=== PATIENT | female | born 1940 | race Caucasian/White ===

== ENCOUNTER 2021-07-04 19:31 | Inpatient (IN) | payer MEDICARE ==
--- NOTE | 2021-07-04 20:33 | ED ---
General Adult HPI - General Chief complaint: Shortness of Breath Stated complaint: ARRON Time Seen by Provider: 07/04/21 19:59 Source: patient, EMS Mode of arrival: EMS Limitations: no limitations - History of Present Illness Initial comments: Dictation was produced using [employer] dictation software. please excuse any grammatical, word or spelling errors. Chief Complaint: 80-year-old female with no significant past medical history presents to the emergency department for flulike symptoms, recent coronavirus positive test History of Present Illness: And is 80-year-old female she denies any significant past medical history. She is unvaccinated. Patient's been feeling symptoms of coronavirus for the last 10 days. EMS was called patient is brought to the emergency department. Patient's been feeling weak with shortness of breath. Tested +5 days ago. According to EMS patient was 72% on room air on initial evaluation. Patient denies any shortness of breath. Patient denies any history of lung disease. The ROS documented in this emergency department record has been reviewed and confirmed by me. Those systems with pertinent positive or negative responses have been documented in the HPI. All other systems are other negative and/or noncontributory. PHYSICAL EXAM: General Impression: Alert and oriented x3, not in acute distress HEENT: Normocephalic atraumatic, extra-ocular movements intact, pupils equal and reactive to light bilaterally, mucous membranes moist. Cardiovascular: Heart regular rate and rhythm Chest: Able to complete full sentences, no retractions, no tachypnea Abdomen: abdomen soft, non-tender, non-distended, no organomegaly Musculoskeletal: Pulses present and equal in all extremities, no peripheral edema Motor: no focal deficits noted Neurological: CN II-XII grossly intact, no focal motor or sensory deficits noted Skin: Intact with no visualized rashes Psych: Normal affect and mood ED course: 80 y Old female tested positive for coronavirus 5 days ago presents to emergency department for shortness of breath and cough. EMS oxygenation on room air was 72%. Patient had a 7% on 3 L nasal cannula. He is a cannula was removed at the bedside with findings of 93-94%. Vital Signs upon arrival are within acceptable limits.Nasal cannula removed the patient's oxygen dropped to 85%. Patient placed on nasal cannula. Patient given Decadron. Return evaluation obtained. Leukocytosis of 10.8 with neutrophils 8.9. Coag panel is negative. Metabolic panel shows LDH of 1000.57. CRP is 23.3. Slightly elevated renal markers. Chest x-ray shows bilateral infiltrates. Patient will be admitted for hypoxic respiratory failure secondary COVID-19. 3 L is a cannula. EKG interpretation: Ventricular rate 85, normal sinus rhythm,. 174, QRS 90, QTc 461. No NH prolongation, no QTC prolongation, no ST or T-wave changes noted. . Overall, this EKG is unremarkable - Related Data Home Medications Medication Instructions Recorded Confirmed No Known Home Medications 07/04/21 07/04/21 Allergies Allergy/AdvReac Type Severity Reaction Status Date / Time No Known Allergies Allergy Verified 07/04/21 21:26 Review of Systems ROS Statement: Those systems with pertinent positive or pertinent negative responses have been documented in the HPI. ROS Other: All systems not noted in ROS Statement are negative. Past Medical History Past Medical History: No Reported History History of Any Multi-Drug Resistant Organisms: None Reported Past Surgical History: No Surgical Hx Reported Past Psychological History: No Psychological Hx Reported Smoking Status: Never smoker General Exam Limitations: no limitations Course Vital Signs 07/04/21 07/04/21 07/04/21 19:38 21:10 21:30 Pulse Rate 89 83 Respiratory 18 18 Rate Blood Pressure 160/83 152/68 O2 Sat by Pulse 97 96 95 Oximetry Medical Decision Making - Lab Data Result diagrams: 07/04/21 20:43 07/04/21 20:43 Lab Results 07/04/21 07/04/21 07/04/21 Range/Units 20:43 20:43 20:43 WBC 10.8 H (3.8-10.6) k/uL RBC 4.60 (3.80-5.40) m/uL Hgb 13.2 (11.4-16.0) gm/dL Hct 39.6 (34.0-46.0) % MCV 86.0 (80.0-100.0) fL MCH 28.7 (25.0-35.0) pg MCHC 33.3 (31.0-37.0) g/dL RDW 12.8 (11.5-15.5) % Plt Count 211 (150-450) k/uL MPV 7.5 Neutrophils % 83 % Lymphocytes % 10 % Monocytes % 4 % Eosinophils % 1 % Basophils % 1 % Neutrophils # 8.9 H (1.3-7.7) k/uL Lymphocytes # 1.0 (1.0-4.8) k/uL Monocytes # 0.4 (0-1.0) k/uL Eosinophils # 0.1 (0-0.7) k/uL Basophils # 0.1 (0-0.2) k/uL PT 11.7 (9.0-12.0) sec INR 1.1 (<1.2) APTT 21.0 L (22.0-30.0) sec Sodium 137 (137-145) mmol/L Potassium 3.9 (3.5-5.1) mmol/L Chloride 101 (98-107) mmol/L Carbon Dioxide 23 (22-30) mmol/L Anion Gap 13 mmol/L BUN 25 H (7-17) mg/dL Creatinine 1.07 H (0.52-1.04) mg/dL Est GFR (CKD-EPI)AfAm 57 (>60 ml/min/1.73 sqM) Est GFR (CKD-EPI)NonAf 49 (>60 ml/min/1.73 sqM) Glucose 105 H (74-99) mg/dL Plasma Lactic Acid Twin (0.7-2.0) mmol/L Calcium 8.9 (8.4-10.2) mg/dL Magnesium 2.0 (1.6-2.3) mg/dL Total Bilirubin 1.0 (0.2-1.3) mg/dL AST 56 H (14-36) U/L ALT 34 (4-34) U/L Alkaline Phosphatase 99 (38-126) U/L Lactate Dehydrogenase 1457 H (313-618) U/L C-Reactive Protein 23.3 H (<1.0) mg/dL Total Protein 7.0 (6.3-8.2) g/dL Albumin 3.5 (3.5-5.0) g/dL 07/04/21 Range/Units 20:43 WBC (3.8-10.6) k/uL RBC (3.80-5.40) m/uL Hgb (11.4-16.0) gm/dL Hct (34.0-46.0) % MCV (80.0-100.0) fL MCH (25.0-35.0) pg MCHC (31.0-37.0) g/dL RDW (11.5-15.5) % Plt Count (150-450) k/uL MPV Neutrophils % % Lymphocytes % % Monocytes % % Eosinophils % % Basophils % % Neutrophils # (1.3-7.7) k/uL Lymphocytes # (1.0-4.8) k/uL Monocytes # (0-1.0) k/uL Eosinophils # (0-0.7) k/uL Basophils # (0-0.2) k/uL PT (9.0-12.0) sec INR (<1.2) APTT (22.0-30.0) sec Sodium (137-145) mmol/L Potassium (3.5-5.1) mmol/L Chloride (98-107) mmol/L Carbon Dioxide (22-30) mmol/L Anion Gap mmol/L BUN (7-17) mg/dL Creatinine (0.52-1.04) mg/dL Est GFR (CKD-EPI)AfAm (>60 ml/min/1.73 sqM) Est GFR (CKD-EPI)NonAf (>60 ml/min/1.73 sqM) Glucose (74-99) mg/dL Plasma Lactic Acid Twin 1.2 (0.7-2.0) mmol/L Calcium (8.4-10.2) mg/dL Magnesium (1.6-2.3) mg/dL Total Bilirubin (0.2-1.3) mg/dL AST (14-36) U/L ALT (4-34) U/L Alkaline Phosphatase (38-126) U/L Lactate Dehydrogenase (313-618) U/L C-Reactive Protein (<1.0) mg/dL Total Protein (6.3-8.2) g/dL Albumin (3.5-5.0) g/dL Disposition Clinical Impression: COVID-19, Hypoxia Disposition: ADMITTED IP TO THIS HOSP Condition: Fair
--- NOTE | 2021-07-04 20:39 | XR ---
EXAMINATION TYPE: XR chest 1V portable DATE OF EXAM: 07/04/2021 COMPARISON: NONE HISTORY: Short of breath TECHNIQUE: Single view FINDINGS: There is some peripheral bilateral pulmonary interstitial pneumonia. There are no hilar mas ses. There is no gross heart failure. Costophrenic angles are clear. IMPRESSION: Bilateral pneumonia. Normal heart.
[2021-07-04 20:54] LABS: Basophils # (A) 0.1 k/uL (0-0.2); Basophils % (A) 1 %; Eosinophils # (A) 0.1 k/uL (0-0.7); Eosinophils % (A) 1 %; HCT 39.6 % (34.0-46.0); HGB 13.2 gm/dL (11.4-16.0); Lymphocytes % (A) 10 %; MCH 28.7 pg (25.0-35.0); MCHC 33.3 g/dL (31.0-37.0); Mean Platelet Volume 7.5; Monocytes # (A) 0.4 k/uL (0-1.0); Monocytes % (A) 4 %; Neutrophils # (A) 8.9 k/uL (1.3-7.7); Neutrophils % (A) 83 %; Platelet Count 211 k/uL (150-450); RDW 12.8 % (11.5-15.5); WBC 10.8 k/uL (3.8-10.6)
[2021-07-04] MEDS ORDERED: NALOXONE 0.4 MG/ML 1 ML VIAL IV PRN (20:57)
[2021-07-04] MEDS ORDERED: DEXAMETHASONE SOD PHOSPHATE 10 MG/ML 1 ML VIAL IV STA (20:57)
[2021-07-04] MEDS ORDERED: ACETAMINOPHEN TAB 325 MG TAB PO PRN (20:57)
[2021-07-04 21:11] LABS: Albumin 3.5 g/dL (3.5-5.0); Calcium 8.9 mg/dL (8.4-10.2)
[2021-07-04 21:24] LABS: INR 1.1 (<1.2); Prothrombin Time 11.7 sec (9.0-12.0)
[2021-07-04 21:25] LABS: Potassium 3.9 mmol/L (3.5-5.1)
[2021-07-04 21:26] LABS: C Reactive Protein 23.3 mg/dL (<1.0)
[2021-07-04] MEDS: SODIUM CHLORIDE 0.9% 1,000 ML IV SCH (21:30)
[2021-07-04] MEDS ORDERED: hydrALAZINE HCL 25 MG TAB PO STA (23:35)
[2021-07-05] MEDS ORDERED: ENOXAPARIN 40 MG/0.4 ML SYRINGE SQ SCH (11:30)
[2021-07-05] MEDS: CHOLECALCIFEROL 25 MCG (1000 IU) TABLET PO SCH (12:53)
[2021-07-05] MEDS: DEXAMETHASONE SOD PHOSPHATE 10 MG/ML 1 ML VIAL IV SCH (12:53)
[2021-07-05] MEDS: ASCORBIC ACID 500 MG TAB PO SCH (12:53)
--- NOTE | 2021-07-05 14:05 | P.CNPUL ---
History of Present Illness Consult date: 07/05/21 Requesting physician: Zeke Diaz Reason for consult: COPD, abnormal CXR/CT Chief complaint: Shortness of breath, cough, congestion History of present illness: This is a very pleasant 80-year-old female patient with no specific past medical history. On no home medications. On June 24 she started developing flu like symptoms with poor appetite, chills, cough, congestion. She tested po sitive for COVID-19 on 06/29/2021 in the [facility]. Her symptoms progressed and she was brought here to the hospital yesterday. She did have O2 saturations in the mid 80s. Chest x-ray showed evidence of COVID-19 pneumonia with bilateral peripheral pulmonary interstitial infiltrates. White count 10.8. Hemoglobin 13.2. Sodium 137. Potassium 3.2. Creatinine 1.07. LDH 1457. C- reactive protein 23.3. Pro-calcitonin 0.13. She's been initiated on Decadron 6 mg daily, Lovenox 40 mg subcu daily, vitamin supplements. She is outside the window for Remdesivir. Does not meet criteria for Baricitinib. She is seen today in consultation on the regular medical floor. She is currently sitting up in bed. Awake and alert in no acute distress. She is maintaining O2 saturations in the 90s on liters per minute per nasal cannula. O2 saturation 92%. She's been afebrile. Hemodynamically stable. Review of Systems REVIEW OF SYSTEMS: CONSTITUTIONAL: Flulike symptoms. Denies any recent significant weight loss or weight gain. EYES: Denies change in vision. EARS, NOSE, MOUTH, THROAT: Denies headaches, denies sore throat. CARDIOVASCULAR: Denies chest pain, palpitations or syncopal episodes. RESPIRATORY: Positive for shortness of breath, cough, congestion no hemoptysis. GASTROINTESTINAL: Decreased appetite, denies abdominal pain GENITOURINARY: Denies hematuria, denies infections. MUSKULOSKELETAL: Denies pain, denies swelling. INTEGUMENTARY: Denies rash, denies eczema. NEUROLOGICAL: Denies recent memory loss, no recent seizure activity. PSYCHIATRIC: Denies anxiety, denies depression. HEMATOLOGIC/LYMPHATIC: Denies anemia, denies enlarged lymph nodes. Past Medical History Past Medical History: No Reported History History of Any Multi-Drug Resistant Organisms: None Reported Past Surgical History: No Surgical Hx Reported Additional Past Surgical History / Comment(s): both knees replaced, hysterectomy, cataracts surgery Past Psychological History: No Psychological Hx Reported Smoking Status: Never smoker Medications and Allergies Home Medications Medication Instructions Recorded Confirmed Type No Known Home Medications 07/04/21 07/04/21 History Allergies Allergy/AdvReac Type Severity Reaction Status Date / Time No Known Allergies Allergy Verified 07/04/21 21:26 Physical Exam Vitals: Vital Signs Temp Pulse Pulse Resp BP BP Pulse Ox 07/05/21 11:51 92 L 07/05/21 10:25 89 L 07/05/21 10:10 98.0 F 92 19 156/73 84 L 07/05/21 09:00 90 L 07/05/21 05:41 98.1 F 78 18 133/69 93 L 07/05/21 02:00 98.3 F 88 18 138/73 97 07/04/21 22:43 98.5 F 80 20 185/78 97 07/04/21 22:40 98.9 F 07/04/21 21:30 83 18 152/68 95 07/04/21 21:10 96 07/04/21 19:38 89 18 160/83 97 Intake and Output 07/04/21 07/05/21 07/05/21 22:59 06:59 14:59 Other: # Voids 1 Weight 72.575 kg GENERAL EXAM: Alert, pleasant 80-year-old female patient, on 6 L nasal cannula, comfortable in no apparent distress. HEAD: Normocephalic. EYES: Normal reaction of pupils, equal size. NOSE: Clear with pink turbinates. THROAT: No erythema or exudates. NECK: No masses, no JVD. CHEST: No chest wall deformity. LUNGS: Equal air entry with crackles in the bilateral posterior bases. CVS: S1 and S2 normal with no audible murmur, regular rhythm. ABDOMEN: No hepatosplenomegaly, normal bowel sounds, no guarding or rigidity. SPINE: No scoliosis or deformity SKIN: No rashes CENTRAL NERVOUS SYSTEM: No focal deficits, tone is normal in all 4 extremities. EXTREMITIES: There is no peripheral edema. No clubbing, no cyanosis. Peripheral pulses are intact. Results - Laboratory Findings CBC and BMP: 07/04/21 20:43 07/04/21 20:43 PT/INR, D-dimer PT 11.7 sec (9.0-12.0) 07/04/21 20:43 INR 1.1 (<1.2) 07/04/21 20:43 Abnormal lab findings: Abnormal Labs 07/04/21 07/04/21 07/04/21 20:43 20:43 20:43 WBC 10.8 H Neutrophils # 8.9 H APTT 21.0 L BUN 25 H Creatinine 1.07 H Glucose 105 H AST 56 H Lactate Dehydrogenase 1457 H C-Reactive Protein 23.3 H Procalcitonin 07/04/21 20:43 WBC Neutrophils # APTT BUN Creatinine Glucose AST Lactate Dehydrogenase C-Reactive Protein Procalcitonin 0.13 H - Diagnostic Findings Chest x-ray: image reviewed Assessment and Plan Assessment: 1 Acute hypoxemic respiratory failure secondary to COVID-19 pneumonia. Unvaccinated. Outside the window for Remdesivir. Currently not qualifying for Baricitinib. 2 Elevated inflammatory markers secondary to above 3 Acute renal failure secondary to dehydration Plan: The patient was seen and evaluated by Dr. Ambrocio Chest x-ray and labs reviewed Obtain a d-dimer Continue Lovenox, Decadron, vitamin supplements Titrate the FiO2 as tolerated Follow-up chest x-ray, inflammatory markers in the a.m. We'll continue to follow and make further recommendations based on her clinical status I, the cosigning physician, performed a history & physical examination of the patient. Lungs sounds with crackles in the bilateral posterior bases. Maintaining good O2 saturations in the 90s on 6 L high flow nasal cannula. I discussed the assessment and plan of care with my nurse practitioner, Magalys Garcias. I attest to the above consultation as dictated by her. Time with Patient: Greater than 30
[2021-07-05 21:33] LABS: Ferritin 1340.1 ng/mL (10.0-291.0)
--- NOTE | 2021-07-05 21:57 | P.HPIM ---
History of Present Illness H&P Date: 07/05/21 Chief Complaint: Shortness of breath History of presenting complaint: This is a pleasant 80-year-old patient with no family doctor. I was informed this afternoon to resume the care of this patient. Patient normally in good health does not take any medications at home. Patient was recently at a family event and on June 22 started having some systemic symptoms. She had a slight cough. Slight chills. Decreased appetite. Some weakness. Symptoms started to progress. Patient started becoming short of breath for last 3 days. June 29 she tested positive for COVID-19. Per EMS his pulse ox dropped down to 72%. She is currently on 6 L. Patient denies any fevers. 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 She was brought in on 3 L of oxygen with a pulse ox pain 90-95% by EMS. Patient did not take the vaccine for COVID-19 Review of systems: GEN.: Tired decreased appetite EYES: None HEENT: None NECK: None RESPIRATORY: As above CARDIOVASCULAR: None GASTROINTESTINAL: Occasional diarrhea GENITOURINARY: None MUSCULOSKELETAL: Some muscle weakness LYMPHATICS: None HEMATOLOGICAL: None PSYCHIATRY: None NEUROLOGICAL: None Past medical history to include: Osteoarthritis. Social history: . No history of smoking or alcohol. Family history: Reviewed, noncontributory to presentation Physical examination: VITAL SIGNS: 98.8, 83, 20, 180/74, 94% on 6 L GENERAL: BMI 27.5, reclining in bed, not in distress. EYES: Pupils equal. Conjunctiva normal. HEENT: External appearance of nose and ears normal, oral cavity grossly normal. NECK: JVD not raised; masses not palpable. HEART: First and second heart sounds are normal; no edema. LUNGS: Respiratory rate increased, basal fine crackles. ABDOMEN: Soft, nontender, liver spleen not palpable, no masses palpable. PSYCH: Alert and oriented x3; mood and affect normal. MUSCULAR skeletal: Evidence of OA especially in the hands NEUROLOGICAL: Cranial nerves grossly intact; no facial asymmetry, power and sensation grossly intact. LYMPHATICS: No lymph nodes palpable in the axilla and neck INVESTIGATIONS, reviewed in the clinical context: White count 10.8 hemoglobin 13.2 platelets 211 d-dimer 34.1 potassium 3.9 BUN 25 creatinine 1.07 CRP 23.3 pro-calcitonin 0.13 EKG tracing personally reviewed by ms-salazar sinus rhythm, 85/m Chest x-ray film personally reviewed by me-bilateral infiltrates Assessment plan: -Acute COVID-19 bilateral pneumonitis, with symptoms starting on June 22. Patient tested positive on June 29. IV dexamethasone. Vitamin C, vitamin D, given d-dimer of 34, and progressive hypoxia will use therapeutic dose Lovenox. Consultation to pulmonary and ID -Acute hypoxic respiratory failure from COVID-19 Patient on 3 L of oxygen on presentation now to 6 L. -Acute kidney injury, prerenal from decreased oral intake IV fluids at 75 mL an hour Care was discussed with the patient. Advised to sit up in a chair when possible. Incentive spirometry. Change positions in bed every half hour. Repeat BMP. Follow d-dimer CRP. Also spoke to patient's daughter Noemi over the phone. Clinical condition updated. Questions answered. Requested daughter to bring in food from the home as patient does not like the hospital food and will not eat the same Given the complexity and severity of patient's condition expect the patient to be in the hospital at least for 2 overnights Past Medical History Past Medical History: No Reported History History of Any Multi-Drug Resistant Organisms: None Reported Past Surgical History: No Surgical Hx Reported Additional Past Surgical History / Comment(s): both knees replaced, hysterectomy, cataracts surgery Past Psychological History: No Psychological Hx Reported Smoking Status: Never smoker Medications and Allergies Home Medications Medication Instructions Recorded Confirmed Type No Known Home Medications 07/04/21 07/04/21 History Allergies Allergy/AdvReac Type Severity Reaction Status Date / Time No Known Allergies Allergy Verified 07/04/21 21:26 Physical Exam Vitals: Vital Signs Temp Pulse Pulse Resp BP BP Pulse Ox 07/05/21 18:00 98.8 F 83 20 180/74 94 L 07/05/21 14:00 98.4 F 86 19 174/91 93 L 07/05/21 11:51 92 L 07/05/21 10:25 89 L 07/05/21 10:10 98.0 F 92 19 156/73 84 L 07/05/21 09:00 90 L 07/05/21 05:41 98.1 F 78 18 133/69 93 L 07/05/21 02:00 98.3 F 88 18 138/73 97 07/04/21 22:43 98.5 F 80 20 185/78 97 07/04/21 22:40 98.9 F 07/04/21 21:30 83 18 152/68 95 07/04/21 21:10 96 Intake and Output 07/05/21 07/05/21 07/05/21 06:59 14:59 22:59 Other: # Voids 1 3 Results CBC & Chem 7: 07/04/21 20:43 07/04/21 20:43 Labs: Abnormal Lab Results - Last 24 Hours (Table) 07/04/21 07/04/21 07/04/21 Range/Units 20:43 20:43 20:43 WBC 10.8 H (3.8-10.6) k/uL Neutrophils # 8.9 H (1.3-7.7) k/uL APTT 21.0 L (22.0-30.0) sec D-Dimer (<0.60) mg/L FEU BUN 25 H (7-17) mg/dL Creatinine 1.07 H (0.52-1.04) mg/dL Glucose 105 H (74-99) mg/dL AST 56 H (14-36) U/L Lactate Dehydrogenase 1457 H (313-618) U/L C-Reactive Protein 23.3 H (<1.0) mg/dL Procalcitonin (0.02-0.09) ng/mL 07/04/21 07/05/21 Range/Units 20:43 14:54 WBC (3.8-10.6) k/uL Neutrophils # (1.3-7.7) k/uL APTT (22.0-30.0) sec D-Dimer >34.10 H (<0.60) mg/L FEU BUN (7-17) mg/dL Creatinine (0.52-1.04) mg/dL Glucose (74-99) mg/dL AST (14-36) U/L Lactate Dehydrogenase (313-618) U/L C-Reactive Protein (<1.0) mg/dL Procalcitonin 0.13 H (0.02-0.09) ng/mL Thrombosis Risk Factor Assmnt - Choose All That Apply Any of the Below Risk Factors Present?: No Each Risk Factor Represents 3 Points: Age 75 years or older Other congenital or acquired thrombophilia - If yes, enter type in comment: No Thrombosis Risk Factor Assessment Total Risk Factor Score: 3 Thrombosis Risk Factor Assessment Level: Moderate Risk
[2021-07-05] MEDS: LACTATED RINGERS 1,000 ML IV SCH (22:01)
[2021-07-05] MEDS: ZINC SULFATE 220 MG CAP PO SCH (22:01)
[2021-07-05] MEDS: ENOXAPARIN 60 MG/0.6 ML SYRINGE SQ SCH (22:02)
[2021-07-05] MEDS: SODIUM CHLORIDE 0.9% 1,000 ML IV SCH (22:14)
[2021-07-05] MEDS: hydrALAZINE HCL 25 MG TAB PO PRN (22:15)
[2021-07-06] MEDS: ASCORBIC ACID 500 MG TAB PO SCH (07:55)
[2021-07-06] MEDS: ENOXAPARIN 60 MG/0.6 ML SYRINGE SQ SCH (07:55)
[2021-07-06] MEDS: ZINC SULFATE 220 MG CAP PO SCH (07:56)
[2021-07-06] MEDS: DEXAMETHASONE SOD PHOSPHATE 10 MG/ML 1 ML VIAL IV SCH (07:56)
[2021-07-06] MEDS: CHOLECALCIFEROL 25 MCG (1000 IU) TABLET PO SCH (07:56)
[2021-07-06] MEDS: FAMOTIDINE 20 MG TAB PO SCH (07:56)
[2021-07-06 08:33] LABS: African American GFR (CKD) 71 (>60 ml/min/1.73 sqM); Anion Gap 12 mmol/L; Blood Urea Nitrogen 29 mg/dL (7-17); Calcium 9.2 mg/dL (8.4-10.2); Carbon Dioxide 25 mmol/L (22-30); Chloride 103 mmol/L (98-107); Glucose 113 mg/dL (74-99); Non-African American GFR(CKD) 61 (>60 ml/min/1.73 sqM); Sodium 140 mmol/L (137-145)
[2021-07-06 08:57] LABS: C Reactive Protein 14.1 mg/dL (<1.0)
[2021-07-06] MEDS: LACTATED RINGERS 1,000 ML IV SCH (10:08)
--- NOTE | 2021-07-06 11:40 | US ---
EXAMINATION TYPE: US venous doppler duplex LE DATE OF EXAM: 07/06/2021 11:13 AM COMPARISON: NONE CLINICAL HISTORY: rule out DVT, elevated d-dimer. Positive Covid, no leg symptoms. SIDE PERFORMED: Bilateral TECHNIQUE: The lower extremity deep venous system is examined utilizing real time linear array sonog marylu with graded compression, doppler sonography and color-flow sonography. VESSELS IMAGED: Common Femoral Vein Deep Femoral Vein Greater Saphenous Vein * Femoral Vein Popliteal Vein Small Saphenous Vein * Proximal Calf Veins (* superficial vessels) There is normal flow, compressibility, vascular waveforms. Right Leg: Negative for DVT Left Leg: Negative for DVT IMPRESSION: No evident deep venous thrombosis within the lower extremities from the level of the knee s centrally
--- NOTE | 2021-07-06 12:13 | P.PN ---
Subjective Progress Note Date: 07/06/21 Principal diagnosis: COVID-19 pneumonia This is a very pleasant 80-year-old female patient with no specific past medical history. On no home medications. On June 24 she started developing flu like symptoms with poor appetite, chills, cough, congestion. She tested positive for COVID-19 on 06/29/2021 in the [place] area. Her symptoms progressed and she was brought here to the hospital yesterday. She did have O2 saturations in the mid 80s. Chest x-ray showed evidence of COVID-19 pneumonia with bilateral peripheral pulmonary interstitial infiltrates. White count 10.8. Hemoglobin 13.2. Sodium 137. Potassium 3.2. Creatinine 1.07. LDH 1457. C- reactive protein 23.3. Pro-calcitonin 0.13. She's been initiated on Decadron 6 mg daily, Lovenox 40 mg subcu daily, vitamin supplements. She is outside the window for Remdesivir. Does not meet criteria for Baricitinib. She is seen today in consultation on the regular medical floor. She is currently sitting up in bed. Awake and alert in no acute distress. She is maintaining O2 saturations in the 90s on liters per minute per nasal cannula. O2 saturation 92%. She's been afebrile. Hemodynamically stable. The patient is seen today 07/06/2021 in follow-up on the regular medical floor she is currently sitting up in bed. Awake and alert in no acute distress. She is still requiring 6 L high flow nasal cannula to maintain O2 saturations in the 90s. She's been afebrile. Hypertensive. D-dimer greater than 34. Sodium 140. Potassium 4.0. Creatinine 0.89. C-reactive protein 14.1. She is continued on Lovenox, Decadron, vitamin supplements. Objective - Vital Signs Vital signs: Vital Signs Temp 97.6 F 07/06/21 10:00 Pulse 76 07/06/21 10:00 Resp 20 07/06/21 10:00 BP 171/71 07/06/21 10:00 Pulse Ox 96 07/06/21 10:02 Intake & Output 07/05/21 07/06/21 07/06/21 18:59 06:59 18:59 Other: # Voids 3 3 3 - Exam GENERAL EXAM: Alert, 80-year-old female patient, on 6 L nasal cannula, comfortable in no apparent distress. HEAD: Normocephalic. EYES: Normal reaction of pupils, equal size. NOSE: Clear with pink turbinates. THROAT: No erythema or exudates. NECK: No masses, no JVD. CHEST: No chest wall deformity. LUNGS: Equal air entry with crackles in the bilateral posterior bases. CVS: S1 and S2 normal with no audible murmur, regular rhythm. ABDOMEN: No hepatosplenomegaly, normal bowel sounds, no guarding or rigidity. SPINE: No scoliosis or deformity SKIN: No rashes CENTRAL NERVOUS SYSTEM: No focal deficits, tone is normal in all 4 extremities. EXTREMITIES: There is no peripheral edema. No clubbing, no cyanosis. Peripheral pulses are intact. - Labs CBC & Chem 7: 07/04/21 20:43 07/06/21 06:51 Labs: Abnormal Lab Results - Last 24 Hours (Table) 07/04/21 07/05/21 07/06/21 Range/Units 20:43 14:54 06:51 D-Dimer >34.10 H >34.10 H (<0.60) mg/L FEU BUN (7-17) mg/dL Glucose (74-99) mg/dL Ferritin 1340.1 H (10.0-291.0) ng/mL C-Reactive Protein (<1.0) mg/dL 07/06/21 Range/Units 06:51 D-Dimer (<0.60) mg/L FEU BUN 29 H (7-17) mg/dL Glucose 113 H (74-99) mg/dL Ferritin (10.0-291.0) ng/mL C-Reactive Protein 14.1 H (<1.0) mg/dL Microbiology - Last 24 Hours (Table) 07/04/21 20:40 Blood Culture - Preliminary Blood No Growth after 24 hours Assessment and Plan Assessment: 1 Acute hypoxemic respiratory failure secondary to COVID-19 pneumonia. Unvaccinated. Outside the window for Remdesivir. Currently not qualifying for Baricitinib. 2 Elevated inflammatory markers secondary to above 3 Acute renal failure secondary to dehydration Plan: The patient was seen and evaluated by Dr. Ambrocio D-dimer elevated, Dopplers negative for DVT Obtain CT angiogram of the chest Increase Lovenox to therapeutic dose Continue Decadron, vitamin supplements Titrate the FiO2 as tolerated We'll continue to follow and make further recommendations based on her clinical status I, the cosigning physician, performed a history & physical examination of the patient. Lungs sounds with crackles in the bilateral posterior bases. Maintaining good O2 saturations in the 90s on 6 L high flow nasal cannula. I discussed the assessment and plan of care with my nurse practitioner, Magalys Garcias. I attest to the above note as dictated by her.
[2021-07-06] MEDS ORDERED: LISINOPRIL-HCTZ 10-12.5 MG 1 EACH TAB PO SCH (12:15)
--- NOTE | 2021-07-06 13:35 | CT ---
CT CHEST FOR PULMONARY EMBOLISM. EXAMINATION TYPE: CT angio chest DATE OF EXAM: 07/06/2021 INDICATION: Elevated D-dimer, +COVID 19 CT DLP: 303.8 mGycm, Automated exposure control for dose reduction was used. CONTRAST: Patient injected with 100 ml mL of Isovue 370. COMPARISON: None TECHNIQUE: CT of the chest is performed on a spiral scan at 2 mm thick sections. Study is performed with intravenous contrast timed for evaluation for pulmonary embolism. This will limit additional po rtions of the evaluation. 3-D MIP images reconstructed by the technologist are reviewed on the compu ter in the coronal and sagittal planes. FINDINGS: Left lower lobe pulmonary artery emboli are evident. No mediastinal or hilar adenopathy enlarged by CT criteria is evident. The ascending aorta diameter at the level of the main pulmonary artery is 3.0 cm. The main pulmonary artery diameter at the bifur cation is 2.9 cm. There are scattered peripheral groundglass opacities and infiltrates compatible with atypical pneumon ia. Limited CT section through the upper abdomen are unremarkable. IMPRESSIONS: 1. Left lower lobe pulmonary emboli. 2. Groundglass opacities to the peripheral lungs compatible with Covid A Red level critical message alert has been initiated for Ricardo Dow MD via the [facility] Results System on 07/06/2021 1:32 PM. This message alert has been sent to Ricardo Dow MD via the preferences provided by the clinician for the receipt of Radiology Critical Findings. Message ID [id number].
[2021-07-06] MEDS: hydrALAZINE HCL 25 MG TAB PO PRN (15:13)
[2021-07-06] MEDS ORDERED: cloNIDine HCL 0.1 MG TAB PO STA (16:32)
--- NOTE | 2021-07-06 17:45 | P.PN ---
Progress Note - Text Progress Note Date: 07/06/21 Chief Complaint: Shortness of breath History of presenting complaint: This is a pleasant 80-year-old patient with no family doctor. I was informed this afternoon to resume the care of this patient. Patient normally in good health does not take any medications at home. Patient was recently at a family event and on June 22 started having some systemic symptoms. She had a slight cough. Slight chills. Decreased appetite. Some weakness. Symptoms started to progress. Patient started becoming short of breath for last 3 days. June 29 she tested positive for COVID-19. Per EMS his pulse ox dropped down to 72%. She is currently on 6 L. Patient denies any fevers. 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 She was brought in on 3 L of oxygen with a pulse ox pain 90-95% by EMS. Patient did not take the vaccine for COVID-19 Admitted with acute COVID-19 pneumonitis, acute hypoxic respiratory failure. Started IV dexamethasone, therapeutic dose of Lovenox. July 06: Patient is breathing is actually better this morning. FiO2 decreased to 4 L. Computed tomography scan of the chest ordered showed left lower lobe PE. Patient is on therapeutic dose of Lovenox. Discussed with Dr. Barraza from [facility]. Given the improving oxygenation patient not a candidate for Baricitinib. Also spoke to patient of Dr. Bella over the phone and given an update. Questions answered. Review of systems: Was done for constitutional, cardiovascular, GI, pulmonary. relevant finding as above Active Medications Acetaminophen (Acetaminophen Tab 325 Mg Tab) 650 mg PO Q6HR PRN PRN Reason: Mild Pain or Fever > 100.5 Ascorbic Acid (Ascorbic Acid 500 Mg Tab) 1,000 mg PO DAILY [facility] Last Admin: 07/06/21 07:55 Dose: 1,000 mg Documented by: Cholecalciferol (Cholecalciferol 25 Mcg (1000 Iu) Tablet) 50 mcg PO DAILY [facility] Last Admin: 07/06/21 07:56 Dose: 50 mcg Documented by: Dexamethasone Sodium Phosphate (Dexamethasone Sod Phosphate 10 Mg/Ml 1 Ml Vial) 6 mg IV DAILY [facility] Last Admin: 07/06/21 07:56 Dose: 6 mg Documented by: Enoxaparin Sodium (Enoxaparin 80 Mg/0.8 Ml Syringe) 70 mg SQ Q12HR [facility] Famotidine (Famotidine 20 Mg Tab) 20 mg PO DAILY [facility] Last Admin: 07/06/21 07:56 Dose: 20 mg Documented by: Lisinopril/HCTZ (Lisinopril-Hctz 20-12.5 Mg 1 Each Tab) 1 each PO BID [facility] Hydralazine HCl (Hydralazine Hcl 25 Mg Tab) 25 mg PO TID PRN PRN Reason: Blood Pressure - High Last Admin: 07/06/21 15:13 Dose: 25 mg Documented by: Lactated Ringer's (Lactated Ringers) 1,000 mls @ 20 mls/hr IV .Q24H [facility] Last Admin: 07/06/21 10:08 Dose: Not Given Documented by: Naloxone HCl (Naloxone 0.4 Mg/Ml 1 Ml Vial) 0.2 mg IV Q2M PRN PRN Reason: Opioid Reversal Zinc Sulfate (Zinc Sulfate 220 Mg Cap) 220 mg PO DAILY [facility] Last Admin: 07/06/21 07:56 Dose: 220 mg Documented by: Past medical history to include: Osteoarthritis. Social history: . No history of smoking or alcohol. Family history: Reviewed, noncontributory to presentation Physical examination: VITAL SIGNS: GENERAL: BMI 27.5, reclining in bed, not in distress. EYES: Pupils equal. Conjunctiva normal. HEENT: External appearance of nose and ears normal, oral cavity grossly normal. NECK: JVD not raised; masses not palpable. HEART: First and second heart sounds are normal; no edema. LUNGS: Respiratory rate increased, basal fine crackles. ABDOMEN: Soft, nontender, liver spleen not palpable, no masses palpable. PSYCH: Alert and oriented x3; mood and affect normal. MUSCULAR skeletal: Evidence of OA especially in the hands NEUROLOGICAL: Cranial nerves grossly intact; no facial asymmetry, power and sensation grossly intact. LYMPHATICS: No lymph nodes palpable in the axilla and neck INVESTIGATIONS, reviewed in the clinical context: July 06: D-dimer greater than 34 potassium 4 creatinine 0.89 CRP 14.1 Chest CTA [July 06: Left lower lobe pulmonary emboli. Infiltrates Doppler ultrasound: Lower extremity/negative for DVT White count 10.8 hemoglobin 13.2 platelets 211 d-dimer 34.1 potassium 3.9 BUN 25 creatinine 1.07 CRP 23.3 pro-calcitonin 0.13 EKG tracing personally reviewed by ky-normal sinus rhythm, 85/m Chest x-ray film personally reviewed by me-bilateral infiltrates Assessment plan: -Acute COVID-19 bilateral pneumonitis, with symptoms starting on June 22. Patient tested positive on June 29. IV dexamethasone. Vitamin C, vitamin D, therapeutic dose Lovenox. Follow with pulmonary and ID -Acute left lower lobe pulmonary emboli, from COVID-19 Subcu Lovenox, therapeutic dose -Acute hypoxic respiratory failure from COVID-19: Slow to respond On 4 L nasal cannula. -Acute kidney injury, prerenal from decreased oral intake: Improving Decrease fluids Continue with IV dexamethasone, therapeutic dose Lovenox. Other supportive care. Discussed with the patient. Discussed with Dr. Barraza from ID, t the patient and updated patient daughter. Total time spent today about 40 minutes with over 20 minutes of discussion.
[2021-07-06] MEDS: LISINOPRIL-HCTZ 20-12.5 MG 1 EACH TAB PO SCH (21:30)
[2021-07-06] MEDS: ENOXAPARIN 80 MG/0.8 ML SYRINGE SQ SCH (21:31)
--- NOTE | 2021-07-06 23:36 | P.CONS ---
History of Present Illness - Reason for Consult Consult date: 07/06/21 covid 19 pneumonia Requesting physician: Ricardo Dow - Chief Complaint weakness and shortness of breath x days - History of Present Illness History of present illness : Patient is a 2-year-old female presenting to the ER 2 nights ago for evaluation of weakness and increasing shortness of breath and this patient symptom has been going on for more than 10 days tested positive for COVID-19 5 days before presentation to the hospital patient mention of the last few days she having increasing shortness of breath and have having significant weakness EMS was called and the patient was noticed to be hypoxic with O2 sats of 72% on room air patient denies having any chest pain she did have a cough moderate intensity was mostly dry in nature denies any nausea no vomiting no abdominal pain no diarrhea on presentation to the hospital patient was afebrile and no fever has been recorded subsequently patient was hypoxic with O2 sats of 85% room air patient is currently 92% on 4 l nasal cannula patient did have a normal white count with some left shift D-dimer has been significantly elevated creatinine was slightly elevated today is normal did have elevated LDH and a CRP blood cultures obtained which are currently pending patient did have a chest x-ray bilateral pneumonia normal heart patient was admitted to hospital infectious disease was consulted last night for further management patient did have lower extremity Doppler has been negative for DVT Review of system: CONSTITUTIONAL: Positive for weakness denies high-grade fever. EYES: No complaint. ENT: No complaint. RESPIRATORY: As per history of present illness. CARDIOVASCULAR: No complaint. GENITOURINARY: No complaint. GASTROINTESTINAL: No complaint. MUSCULOSKELETAL: No complaint. INTEGUMENTARY: No complaint. PSYCHOLOGIC: No complaint. ENDOCRINE: No complaint. NEUROLOGIC: No complaint. Past medical history : Reviewed, documented below Past surgical history : Reviewed, documented below Social history: Reviewed, documented below Medications: Reviewed, as documented below EXAMINATION: Vital sigans= Reviewed and documented below GENERAL DESCRIPTION: Elderly female lying in bed, no distress. No tachypnea or accessory muscle of respiration use. HEENT: Shows Pallor , no scleral icterus. Oral mucous membrane is dry. NECK: Trachea central, no thyromegaly. LUNGS: Unlabored breathing. Decrease intensity of breath sounds. No wheeze or crackle. HEART: S1, S2, regular rate and rhythm. ABDOMEN: Soft, no tenderness , guarding or rigidity EXTREMITIES: No edema of feet. SKIN: No rash, no masses palpable. NEUROLOGICAL: The patient is awake, alert, oriented x3, mood and affect normal. LABS AND RADIOLOGY: Reviewed results see below Assessment : Patient presented to hospital with increasing shortness of breath hypoxemia secondary to acute COVID-19 pneumonia in this patient symptom has been going on for more than 10 minutes and is currently out of the therapeutic window for remdesivir per [facility] policy 2-patient with significant elevated D-dimer concern for PE, positive CT angiogram has been ordered Plan: 1-patient at this time to continue with the dexamethasone Lovenox zinc and ascorbic acid 2-droplet isolation and respiratory support 3-no need for systemic antibiotic therapy We will follow on clinical condition and cultures to further adjust medication if needed Thank you for this consultation we will follow the patient along with you Past Medical History Past Medical History: No Reported History History of Any Multi-Drug Resistant Organisms: None Reported Past Surgical History: No Surgical Hx Reported Additional Past Surgical History / Comment(s): both knees replaced, hysterectomy, cataracts surgery Past Psychological History: No Psychological Hx Reported Smoking Status: Never smoker Medications and Allergies Home Medications Medication Instructions Recorded Confirmed Type No Known Home Medications 07/04/21 07/04/21 History Allergies Allergy/AdvReac Type Severity Reaction Status Date / Time No Known Allergies Allergy Verified 07/04/21 21:26 Physical Exam Vitals: Vital Signs Temp Pulse Resp BP Pulse Ox 07/06/21 21:06 97.7 F 69 20 183/80 92 L 07/06/21 18:00 97.4 F L 82 20 179/76 91 L 07/06/21 15:07 81 186/76 07/06/21 14:00 97.7 F 78 20 195/74 94 L 07/06/21 10:02 96 07/06/21 10:00 97.6 F 76 20 171/71 96 07/06/21 08:00 18 07/06/21 06:13 97.5 F L 71 18 161/77 92 L 07/06/21 02:27 98.2 F 87 16 189/73 94 L Intake and Output 07/06/21 07/06/21 07/07/21 14:59 22:59 06:59 Other: # Voids 3 3 Results CBC & Chem 7: 07/04/21 20:43 07/06/21 06:51 Labs: Abnormal Lab Results - Last 24 Hours (Table) 07/06/21 07/06/21 Range/Units 06:51 06:51 D-Dimer >34.10 H (<0.60) mg/L FEU BUN 29 H (7-17) mg/dL Glucose 113 H (74-99) mg/dL C-Reactive Protein 14.1 H (<1.0) mg/dL Microbiology - Last 24 Hours (Table) 07/04/21 20:40 Blood Culture - Preliminary Blood No Growth after 48 hours
[2021-07-07] MEDS: LACTATED RINGERS 1,000 ML IV SCH (01:53)
[2021-07-07] MEDS: METOPROLOL TARTRATE 25 MG TAB PO SCH ×3 (01:53→22:16)
[2021-07-07 06:54] LABS: Glucose,Whole Blood 80 mg/dL (75-99)
[2021-07-07] MEDS: ZINC SULFATE 220 MG CAP PO SCH (09:07)
[2021-07-07] MEDS: hydrALAZINE HCL 25 MG TAB PO PRN ×2 (09:08→18:28)
[2021-07-07] MEDS: DEXAMETHASONE SOD PHOSPHATE 10 MG/ML 1 ML VIAL IV SCH (09:08)
[2021-07-07] MEDS: FAMOTIDINE 20 MG TAB PO SCH (09:08)
[2021-07-07] MEDS: LISINOPRIL-HCTZ 20-12.5 MG 1 EACH TAB PO SCH ×2 (09:08→22:17)
[2021-07-07] MEDS: ASCORBIC ACID 500 MG TAB PO SCH (09:08)
[2021-07-07] MEDS: ENOXAPARIN 80 MG/0.8 ML SYRINGE SQ SCH (09:09)
[2021-07-07] MEDS: CHOLECALCIFEROL 25 MCG (1000 IU) TABLET PO SCH (09:09)
[2021-07-07] MEDS ORDERED: APIXABAN 5 MG TAB PO SCH (09:45)
[2021-07-07] MEDS ORDERED: METOPROLOL TARTRATE 25 MG TAB PO STA (11:57)
[2021-07-07] MEDS: CHLORTHALIDONE 25 MG TAB PO SCH (12:24)
--- NOTE | 2021-07-07 13:24 | P.PN ---
Subjective Progress Note Date: 07/07/21 Principal diagnosis: Acute COVID-19 pneumonia This is a very pleasant 80-year-old female patient with no specific past medical history. On no home medications. On June 24 she started developing flu like symptoms with poor appetite, chills, cough, congestion. She tested po sitive for COVID-19 on 06/29/2021 in the [place] area. Her symptoms progressed and she was brought here to the hospital yesterday. She did have O2 saturations in the mid 80s. Chest x-ray showed evidence of COVID-19 pneumonia with bilateral peripheral pulmonary interstitial infiltrates. White count 10.8. Hemoglobin 13.2. Sodium 137. Potassium 3.2. Creatinine 1.07. LDH 1457. C- reactive protein 23.3. Pro-calcitonin 0.13. She's been initiated on Decadron 6 mg daily, Lovenox 40 mg subcu daily, vitamin supplements. She is outside the window for Remdesivir. Does not meet criteria for Baricitinib. She is seen today in consultation on the regular medical floor. She is currently sitting up in bed. Awake and alert in no acute distress. She is maintaining O2 saturations in the 90s on liters per minute per nasal cannula. O2 saturation 92%. She's been afebrile. Hemodynamically stable. The patient is seen today 07/06/2021 in follow-up on the regular medical floor she is currently sitting up in bed. Awake and alert in no acute distress. She is still requiring 6 L high flow nasal cannula to maintain O2 saturations in the 90s. She's been afebrile. Hypertensive. D-dimer greater than 34. Sodium 140. Potassium 4.0. Creatinine 0.89. C-reactive protein 14.1. She is continued on Lovenox, Decadron, vitamin supplements. Reevaluated today on 07/07/2021, patient remains on the regular medical floor, she is on4 L nasal cannula, and her O2 saturation is 93%. Blood pressure however remains high, her blood pressures as high as 190/76. Patient is afebrile, she seems to be a bit anxious. CT of the chest showed left lower lobe pulmonary emboli and groundglass opacities to peripheral lungs compatible with COVID-19 infection. Patient has been fully anticoagulated, and I plan to transition the patient to oral anticoagulation therapy. Patient will be placed on Eliquis at 10 mg by mouth twice a day and eventually go to 5 mg twice a day. For her blood pressure, patient is receiving hydralazine, metoprolol, lisinopril, and Objective - Vital Signs Vital signs: Vital Signs Temp 97.7 F 07/07/21 10:00 Pulse 81 07/07/21 10:00 Resp 18 07/07/21 10:00 BP 190/76 07/07/21 10:00 Pulse Ox 90 L 07/07/21 10:00 Intake & Output 07/06/21 07/07/21 07/07/21 18:59 06:59 18:59 Other: Voiding Method Toilet Toilet # Voids 3 2 # Bowel Movements 1 - Exam Physical Exam: Revealed 80-year-old female in no distress. Head: Atraumatic normocephalic. HEENT:[Neck is supple.] [No neck masses.] [No thyromegaly.] [No JVD.] Chest: [Minimal fine crackles at the bases bilaterally. Cardiac Exam: [Normal S1 and S2, no S3 gallop, no murmur.] Abdomen: [Soft, nontender, no megaly, no rebound, no guarding, normal bowel sounds.] Extremities: [No clubbing, no edema, no cyanosis.] Neurological Exam: [No focal neurologic deficit.] No gross focal deficit. Alert and oriented 3. Psychiatric: Anxious, appropriate affect, normal mental status examination. Skin: No rashes. - Labs CBC & Chem 7: 07/04/21 20:43 07/06/21 06:51 Labs: Microbiology - Last 24 Hours (Table) 07/04/21 20:40 Blood Culture - Preliminary Blood No Growth after 48 hours Assessment and Plan Assessment: 1 Acute hypoxemic respiratory failure secondary to COVID-19 pneumonia. Unvaccinated. Outside the window for Remdesivir. Currently not qualifying for Baricitinib. 2 Elevated inflammatory markers secondary to above 3 Acute renal failure secondary to dehydration 4 acute pulmonary embolism provoked by COVID-19 pneumonia. This is also contributing to her acute hypoxemia. 5 benign essential hypertension, poorly controlled at present, being addressed by the admitting physician and she is on multiple medications presently. Recommendation: Continue Eliquis therapeutically for pulmonary embolism Discontinue Lovenox. Continue Decadron. Continue to titrate FiO2. Possibly consider discharge planning in the next 24-48 hours. Continue COVID-19 cocktail. We will continue to follow. Time with Patient: Less than 30
--- NOTE | 2021-07-07 15:34 | P.PN ---
Progress Note - Text Progress Note Date: 07/07/21 Chief Complaint: Shortness of breath History of presenting complaint: This is a pleasant 80-year-old patient with no family doctor. I was informed this afternoon to resume the care of this patient. Patient normally in good health does not take any medications at home. Patient was recently at a family event and on June 22 started having some systemic symptoms. She had a slight cough. Slight chills. Decreased appetite. Some weakness. Symptoms started to progress. Patient started becoming short of breath for last 3 days. June 29 she tested positive for COVID-19. Per EMS his pulse ox dropped down to 72%. She is currently on 6 L. Patient denies any fevers. 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 She was brought in on 3 L of oxygen with a pulse ox pain 90-95% by EMS. Patient did not take the vaccine for COVID-19 Admitted with acute COVID-19 pneumonitis, acute hypoxic respiratory failure. Started IV dexamethasone, therapeutic dose of Lovenox. Acute left lower lobe pulmonary embolism. Being changed over to eliquis July 06: Patient is breathing is actually better this morning. FiO2 decreased to 4 L. Computed tomography scan of the chest ordered showed left lower lobe PE. Patient is on therapeutic dose of Lovenox. Discussed with Dr. Barraza from [place]. Given the improving oxygenation patient not a candidate for Baricitinib. Also spoke to patient of Dr. Bella over the phone and given an update. Questions answered. July 07: On 4 L of nasal cannula. Oral intake fair. Had bowel movement. No fever. Slight cough. Breathing stable. Being changed over to eliquis. Discussed with patient. Has been up in a chair. Blood pressure been running high. I added beta ileana yesterday evening. Dose was further increased this morning as a morning blood pressure was 190/76. Chlorthalidone also added. Review of systems: Was done for constitutional, cardiovascular, GI, pulmonary. relevant finding as above Active Medications Acetaminophen (Acetaminophen Tab 325 Mg Tab) 650 mg PO Q6HR PRN PRN Reason: Mild Pain or Fever > 100.5 Apixaban (Apixaban 5 Mg Tab) 5 mg PO BID [facility]; Protocol Apixaban (Apixaban 5 Mg Tab) 10 mg PO BID [facility]; Protocol Stop: 07/14/21 09:01 Ascorbic Acid (Ascorbic Acid 500 Mg Tab) 1,000 mg PO DAILY [facility] Last Admin: 07/07/21 09:08 Dose: 1,000 mg Documented by: Chlorthalidone (Chlorthalidone 25 Mg Tab) 25 mg PO DAILY [facility] Last Admin: 07/07/21 12:24 Dose: 25 mg Documented by: Cholecalciferol (Cholecalciferol 25 Mcg (1000 Iu) Tablet) 50 mcg PO DAILY [facility] Last Admin: 07/07/21 09:09 Dose: 50 mcg Documented by: Dexamethasone Sodium Phosphate (Dexamethasone Sod Phosphate 10 Mg/Ml 1 Ml Vial) 6 mg IV DAILY [facility] Last Admin: 07/07/21 09:08 Dose: 6 mg Documented by: Famotidine (Famotidine 20 Mg Tab) 20 mg PO DAILY [facility] Last Admin: 07/07/21 09:08 Dose: 20 mg Documented by: Lisinopril/HCTZ (Lisinopril-Hctz 20-12.5 Mg 1 Each Tab) 1 each PO BID [facility] Last Admin: 07/07/21 09:08 Dose: 1 each Documented by: Hydralazine HCl (Hydralazine Hcl 25 Mg Tab) 25 mg PO TID PRN PRN Reason: Blood Pressure - High Last Admin: 07/07/21 09:08 Dose: 25 mg Documented by: Lactated Ringer's (Lactated Ringers) 1,000 mls @ 10 mls/hr IV .Q24H [facility] Last Admin: 07/07/21 01:53 Dose: 20 mls/hr Documented by: Metoprolol Tartrate (Metoprolol Tartrate 25 Mg Tab) 50 mg PO BID [facility] Naloxone HCl (Naloxone 0.4 Mg/Ml 1 Ml Vial) 0.2 mg IV Q2M PRN PRN Reason: Opioid Reversal Zinc Sulfate (Zinc Sulfate 220 Mg Cap) 220 mg PO DAILY [facility] Last Admin: 07/07/21 09:07 Dose: 220 mg Documented by: Past medical history to include: Osteoarthritis. Social history: . No history of smoking or alcohol. Family history: Reviewed, noncontributory to presentation Physical examination: VITAL SIGNS: 98.6, 66, 18, 156.97, 96% on 4 L GENERAL: Sitting on the side of the bed, eating LUNGS: Respiratory rate increased,. PSYCH: Alert and oriented x3; mood and affect normal. MUSCULAR skeletal: Evidence of OA especially in the hands NEUROLOGICAL: Moving all 4 limbs. Cranial nerves grossly intact. Rest of the exam as per pulmonary and nursing INVESTIGATIONS, reviewed in the clinical context: July 06: D-dimer greater than 34 potassium 4 creatinine 0.89 CRP 14.1 Chest CTA [July 06: Left lower lobe pulmonary emboli. Infiltrates Doppler ultrasound: Lower extremity/negative for DVT White count 10.8 hemoglobin 13.2 platelets 211 d-dimer 34.1 potassium 3.9 BUN 25 creatinine 1.07 CRP 23.3 pro-calcitonin 0.13 EKG tracing personally reviewed by me-normal sinus rhythm, 85/m Chest x-ray film personally reviewed by me-bilateral infiltrates Assessment plan: -Acute COVID-19 bilateral pneumonitis, with symptoms starting on June 22. Patient tested positive on June 29.: Slow to respond IV dexamethasone. Vitamin C, vitamin D, therapeutic dose Lovenox.-Changed over to eliquis Follow with pulmonary and ID -Acute left lower lobe pulmonary emboli, from COVID-19 Subcu Lovenox, being changed to to eliquis -Acute hypoxic respiratory failure from COVID-19: Slow to respond On 4 L nasal cannula. -Acute kidney injury, prerenal from decreased oral intake: Improving Decrease fluids -Essential hypertension with urgency Zestoretic 20/12.5 one tablet twice a day. Today Lopressor increased to 50 mg twice a day.. Chlorthalidone 25 mg daily added. IV dexamethasone, Lovenox being changed over to eliquis. For uncontrolled blood pressure dose of Lopressor increased to 50 mg twice a day. Chlorthalidone 25 mg daily added. IV fluids cutback. Discussed with patient
--- NOTE | 2021-07-07 16:36 | PN ---
PROGRESS NOTE DATE OF SERVICE: 07/07/2021 REASON FOR FOLLOWUP: COVID-19 pneumonia. INTERVAL HISTORY: Patient is afebrile. The patient is breathing comfortably today. Denies having any chest pain. Cough has decreased intensity. Mostly dry. No nausea, no vomiting. No abdominal pain, no diarrhea. PHYSICAL EXAMINATION: Blood pressure 156/97, pulse of 73, temperature 98.3 she is 96% on 4 L nasal cannula. General description is an elderly female up in the chair in no distress. Respiratory system unlabored breathing with decreased breath sounds. No wheeze. Heart S1, S2. Regular rate and rhythm. Abdomen soft. LABS: No new labs have been obtained today. DIAGNOSTIC IMPRESSION AND PLAN: Patient with acute COVID-19 pneumonia in this patient who had complicating factor of PE. The patient is currently being treated with dexamethasone and ascorbic acid and Eliquis to continue. Monitor clinical course closely. Continue supportive care negative. MMODL / IJN: [id number] /
[2021-07-07] MEDS: APIXABAN 5 MG TAB PO SCH (22:16)
[2021-07-08] MEDS: hydrALAZINE HCL 25 MG TAB PO PRN ×3 (02:40→18:20)
[2021-07-08] MEDS: LACTATED RINGERS 1,000 ML IV SCH (02:41)
[2021-07-08 05:18] LABS: African American GFR (CKD) 68 (>60 ml/min/1.73 sqM); Anion Gap 9 mmol/L; Blood Urea Nitrogen 29 mg/dL (7-17); Calcium 9.2 mg/dL (8.4-10.2); Carbon Dioxide 26 mmol/L (22-30); Chloride 103 mmol/L (98-107); Glucose 92 mg/dL (74-99); LDH 1212 U/L (313-618); Non-African American GFR(CKD) 59 (>60 ml/min/1.73 sqM); Potassium 3.9 mmol/L (3.5-5.1); Sodium 138 mmol/L (137-145)
--- NOTE | 2021-07-08 08:52 | XR ---
EXAMINATION TYPE: XR chest 1V portable DATE OF EXAM: 07/08/2021 Comparison: 07/04/2021 Clinical History: 80 year-old female follow up COVID Findings: Heart upper limits of normal in size. Hyperinflation. Bilateral peripheral lung opacities, right grea ter than left. No pleural effusion. Impression: COPD with continued right greater than left peripheral COVID infiltrates without significant change.
[2021-07-08] MEDS: DEXAMETHASONE SOD PHOSPHATE 10 MG/ML 1 ML VIAL IV SCH (09:24)
[2021-07-08] MEDS: APIXABAN 5 MG TAB PO SCH ×2 (09:25→22:58)
[2021-07-08] MEDS: CHOLECALCIFEROL 25 MCG (1000 IU) TABLET PO SCH (09:25)
[2021-07-08] MEDS: METOPROLOL TARTRATE 25 MG TAB PO SCH (09:25)
[2021-07-08] MEDS: ZINC SULFATE 220 MG CAP PO SCH (09:25)
[2021-07-08] MEDS: ASCORBIC ACID 500 MG TAB PO SCH (09:25)
[2021-07-08] MEDS: LISINOPRIL-HCTZ 20-12.5 MG 1 EACH TAB PO SCH ×2 (09:25→22:59)
[2021-07-08] MEDS: CHLORTHALIDONE 25 MG TAB PO SCH (09:25)
[2021-07-08] MEDS: FAMOTIDINE 20 MG TAB PO SCH (09:25)
--- NOTE | 2021-07-08 12:52 | P.PN ---
Subjective Progress Note Date: 07/08/21 Principal diagnosis: COVID-19 pneumonia This is a very pleasant 80-year-old female patient with no specific past medical history. On no home medications. On June 24 she started developing flu like symptoms with poor appetite, chills, cough, congestion. She tested positive for COVID-19 on 06/29/2021 in the [place] area. Her symptoms progressed and she was brought here to the hospital yesterday. She did have O2 saturations in the mid 80s. Chest x-ray showed evidence of COVID-19 pneumonia with bilateral peripheral pulmonary interstitial infiltrates. White count 10.8. Hemoglobin 13.2. Sodium 137. Potassium 3.2. Creatinine 1.07. LDH 1457. C- reactive protein 23.3. Pro-calcitonin 0.13. She's been initiated on Decadron 6 mg daily, Lovenox 40 mg subcu daily, vitamin supplements. She is outside the window for Remdesivir. Does not meet criteria for Baricitinib. She is seen today in consultation on the regular medical floor. She is currently sitting up in bed. Awake and alert in no acute distress. She is maintaining O2 saturations in the 90s on liters per minute per nasal cannula. O2 saturation 92%. She's been afebrile. Hemodynamically stable. The patient is seen today 07/06/2021 in follow-up on the regular medical floor she is currently sitting up in bed. Awake and alert in no acute distress. She is still requiring 6 L high flow nasal cannula to maintain O2 saturations in the 90s. She's been afebrile. Hypertensive. D-dimer greater than 34. Sodium 140. Potassium 4.0. Creatinine 0.89. C-reactive protein 14.1. She is continued on Lovenox, Decadron, vitamin supplements. Reevaluated today on 07/07/2021, patient remains on the regular medical floor, she is on4 L nasal cannula, and her O2 saturation is 93%. Blood pressure christina earl remains high, her blood pressures as high as 190/76. Patient is afebrile, she seems to be a bit anxious. CT of the chest showed left lower lobe pulmonary emboli and groundglass opacities to peripheral lungs compatible with COVID-19 infection. Patient has been fully anticoagulated, and I plan to transition the patient to oral anticoagulation therapy. Patient will be placed on Eliquis at 10 mg by mouth twice a day and eventually go to 5 mg twice a day. For her blood pressure, patient is receiving hydralazine, metoprolol, lisinopril, The patient is seen today 07/08/2021 in follow-up on the regular medical floor. She is sitting up in bed. Awake and alert in no acute distress. Eating a bit easier today compared to yesterday. Maintaining O2 saturations in the 90s on 4 L/m per nasal cannula. Afebrile. D-dimer 13.8. Sodium 138. Potassium 3.9. Creatinine 0.93. LDH 1212. C-reactive protein 9.0. She is anticoagulated with Eliquis. Remains on Decadron and vitamin supplements. Objective - Vital Signs Vital signs: Vital Signs Temp 98.2 F 07/08/21 11:00 Pulse 56 L 07/08/21 11:00 Resp 18 07/08/21 11:00 BP 168/77 07/08/21 11:00 Pulse Ox 94 L 07/08/21 11:00 Intake & Output 07/07/21 07/08/21 07/08/21 18:59 06:59 18:59 Other: Voiding Method Toilet Toilet Toilet # Voids 3 2 - Exam GENERAL EXAM: Alert, 80-year-old female patient, on 4 L nasal cannula, comfortable in no apparent distress. HEAD: Normocephalic. EYES: Normal reaction of pupils, equal size. NOSE: Clear with pink turbinates. THROAT: No erythema or exudates. NECK: No masses, no JVD. CHEST: No chest wall deformity. LUNGS: Equal air entry with crackles in the bilateral posterior bases. CVS: S1 and S2 normal with no audible murmur, regular rhythm. ABDOMEN: No hepatosplenomegaly, normal bowel sounds, no guarding or rigidity. SPINE: No scoliosis or deformity SKIN: No rashes CENTRAL NERVOUS SYSTEM: No focal deficits, tone is normal in all 4 extremities. EXTREMITIES: There is no peripheral edema. No clubbing, no cyanosis. Peripheral pulses are intact. - Labs CBC & Chem 7: 07/04/21 20:43 07/08/21 04:33 Labs: Abnormal Lab Results - Last 24 Hours (Table) 07/08/21 07/08/21 Range/Units 04:33 04:33 D-Dimer 13.82 H (<0.60) mg/L FEU BUN 29 H (7-17) mg/dL Lactate Dehydrogenase 1212 H (313-618) U/L C-Reactive Protein 9.0 H (<1.0) mg/dL Microbiology - Last 24 Hours (Table) 07/04/21 20:40 Blood Culture - Preliminary Blood No Growth after 72 hours Assessment and Plan Assessment: 1 Acute hypoxemic respiratory failure secondary to COVID-19 pneumonia. Unvaccinated. Outside the window for Remdesivir. Currently not qualifying for Baricitinib. 2 Elevated inflammatory markers secondary to above 3 Acute renal failure secondary to dehydration Plan: The patient was seen and evaluated by Dr. Ambrocio Chest x-ray and labs reviewed Anticoagulated with Eliquis Continue Decadron, vitamin supplements Titrate the FiO2 as tolerated Possible discharge in the a.m. We'll continue to follow and make further recommendations based on her clinical status I, the cosigning physician, performed a history & physical examination of the patient. Lungs sounds with crackles in the bilateral posterior bases. Maintaining good O2 saturations in the 90s on 4L nasal cannula. I discussed the assessment and plan of care with my nurse practitioner, Magalys Garcias. I attest to the above note as dictated by her.
[2021-07-08] MEDS ORDERED: METOPROLOL TARTRATE 25 MG TAB PO STA (12:57)
--- NOTE | 2021-07-08 15:32 | P.PN ---
Progress Note - Text Progress Note Date: 07/08/21 Chief Complaint: Shortness of breath History of presenting complaint: This is a pleasant 80-year-old patient with no family doctor. I was informed this afternoon to resume the care of this patient. Patient normally in good health does not take any medications at home. Patient was recently at a family event and on June 22 started having some systemic symptoms. She had a slight cough. Slight chills. Decreased appetite. Some weakness. Symptoms started to progress. Patient started becoming short of breath for last 3 days. June 29 she tested positive for COVID-19. Per EMS his pulse ox dropped down to 72%. She is currently on 6 L. Patient denies any fevers. 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 She was brought in on 3 L of oxygen with a pulse ox pain 90-95% by EMS. Patient did not take the vaccine for COVID-19 Admitted with acute COVID-19 pneumonitis, acute hypoxic respiratory failure. Started IV dexamethasone, therapeutic dose of Lovenox. Acute left lower lobe pulmonary embolism. Being changed over to eliquis July 06: Patient is breathing is actually better this morning. FiO2 decreased to 4 L. Computed tomography scan of the chest ordered showed left lower lobe PE. Patient is on therapeutic dose of Lovenox. Discussed with Dr. Barraza from ID. Given the improving oxygenation patient not a candidate for Baricitinib. Also spoke to patient of Dr. Bella over the phone and given an update. Questions answered. July 07: On 4 L of nasal cannula. Oral intake fair. Had bowel movement. No fever. Slight cough. Breathing stable. Being changed over to eliquis. Discussed with patient. Has been up in a chair. Blood pressure been running high. I added beta ileana yesterday evening. Dose was further increased this morning as a morning blood pressure was 190/76. Chlorthalidone also added. July 08: On 4 L of nasal cannula. Oral intake fair. Breathing slightly better. Blood pressure still running high. Will DC Lopressor, start labetalol 400 mg twice a day. Review of systems: Was done for constitutional, cardiovascular, GI, pulmonary. relevant finding as above Active Medications Acetaminophen (Acetaminophen Tab 325 Mg Tab) 650 mg PO Q6HR PRN PRN Reason: Mild Pain or Fever > 100.5 Apixaban (Apixaban 5 Mg Tab) 5 mg PO BID JOSE ALBERTO; Protocol Apixaban (Apixaban 5 Mg Tab) 10 mg PO BID [facility]; Protocol Stop: 07/14/21 09:01 Last Admin: 07/08/21 09:25 Dose: 10 mg Documented by: Ascorbic Acid (Ascorbic Acid 500 Mg Tab) 1,000 mg PO DAILY [facility] Last Admin: 07/08/21 09:25 Dose: 1,000 mg Documented by: Chlorthalidone (Chlorthalidone 25 Mg Tab) 25 mg PO DAILY [facility] Last Admin: 07/08/21 09:25 Dose: 25 mg Documented by: Cholecalciferol (Cholecalciferol 25 Mcg (1000 Iu) Tablet) 50 mcg PO DAILY [facility] Last Admin: 07/08/21 09:25 Dose: 50 mcg Documented by: Dexamethasone Sodium Phosphate (Dexamethasone Sod Phosphate 10 Mg/Ml 1 Ml Vial) 6 mg IV DAILY [facility] Last Admin: 07/08/21 09:24 Dose: 6 mg Documented by: Famotidine (Famotidine 20 Mg Tab) 20 mg PO DAILY [facility] Last Admin: 07/08/21 09:25 Dose: 20 mg Documented by: Lisinopril/HCTZ (Lisinopril-Hctz 20-12.5 Mg 1 Each Tab) 1 each PO BID [facility] Last Admin: 07/08/21 09:25 Dose: 1 each Documented by: Hydralazine HCl (Hydralazine Hcl 25 Mg Tab) 25 mg PO TID PRN PRN Reason: Blood Pressure - High Last Admin: 07/08/21 09:25 Dose: 25 mg Documented by: Lactated Ringer's (Lactated Ringers) 1,000 mls @ 10 mls/hr IV .Q24H [facility] Last Admin: 07/08/21 02:41 Dose: 10 mls/hr Documented by: Labetalol HCl (Labetalol 200 Mg Tab) 400 mg PO BID [facility] Naloxone HCl (Naloxone 0.4 Mg/Ml 1 Ml Vial) 0.2 mg IV Q2M PRN PRN Reason: Opioid Reversal Zinc Sulfate (Zinc Sulfate 220 Mg Cap) 220 mg PO DAILY [facility] Last Admin: 07/08/21 09:25 Dose: 220 mg Documented by: Past medical history to include: Osteoarthritis. Social history: . No history of smoking or alcohol. Family history: Reviewed, noncontributory to presentation Physical examination: VITAL SIGNS: 98.2, 56, 18, 160/77, 94% on 4 L GENERAL: Sitting on the side of the bed, at in distress LUNGS: Respiratory rate increased,. PSYCH: Alert and oriented x3; mood and affect normal. NEUROLOGICAL: Moving all 4 limbs. Cranial nerves grossly intact. Rest of the exam as per pulmonary and nursing INVESTIGATIONS, reviewed in the clinical context: July 08: D-dimer 13.8 potassium 3.9 creatinine 0.93 CRP 9 July 06: D-dimer greater than 34 potassium 4 creatinine 0.89 CRP 14.1 Chest CTA [July 06: Left lower lobe pulmonary emboli. Infiltrates Doppler ultrasound: Lower extremity/negative for DVT White count 10.8 hemoglobin 13.2 platelets 211 d-dimer 34.1 potassium 3.9 BUN 25 creatinine 1.07 CRP 23.3 pro-calcitonin 0.13 EKG tracing personally reviewed by me-normal sinus rhythm, 85/m Chest x-ray film personally reviewed by me-bilateral infiltrates Assessment plan: -Acute COVID-19 bilateral pneumonitis, with symptoms starting on June 22. Patient tested positive on June 29.: Slow improvement IV dexamethasone. Vitamin C, vitamin D, therapeutic dose Lovenox.-Changed over to eliquis Follow with pulmonary and ID -Acute left lower lobe pulmonary emboli, from COVID-19 Subcu Lovenox, changed to eliquis -Acute hypoxic respiratory failure from COVID-19: Slow to respond On 4 L nasal cannula. -Acute kidney injury, prerenal from decreased oral intake: Improved Decrease fluids -Essential hypertension with urgency Zestoretic 20/12.5 one tablet twice a day. Chlorthalidone 25 mg daily added. DC Lopressor. Start low labetalol 400 mg twice a day. 2-D echocardiogram IV dexamethasone,eliquis. DC Lopressor. Labetalol 400 mg twice a day and is starting this evening. Discussed with the patient. Also spoke to patient's daughter over the phone. Updated. Order 2-D echocardiogram
[2021-07-08] MEDS: LABETALOL 200 MG TAB PO SCH (22:59)
--- NOTE | 2021-07-08 23:19 | PN ---
PROGRESS NOTE DATE OF SERVICE: July 08, 2021. REASON FOR FOLLOW UP: Covid 19 pneumonia. INTERVAL HISTORY: Patient is afebrile. The patient is feeling better. She is breathing more comfortably. Patient denies any chest pain. Cough has decreased intensity. No vomiting. No abdominal pain. No diarrhea. PHYSICAL EXAMINATION: Blood pressure 119/70 with pulse of 56. Temperature 98.2. She is 93% on 2 L nasal cannula. General description is an elderly female up in the bed in no distress. Respiratory system: Unlabored breathing with decreased intensity of breath sounds. No wheeze. Heart S1, S2. Regular rate and rhythm. Abdomen soft, no tenderness. LABS: BUN of 29, creatinine 0.93. D-dimer is down to 13.82 and LDH is elevated. CRP is down to 9. DIAGNOSTIC IMPRESSION/PLAN: Patient with acute COVID-19 pneumonia complicating factor of in this patient slowly clinically responding. She is currently on Decadron, Eliquis, zinc and ascorbic acid to continue and monitor clinical course closely. MMODL / IJN: [id number] /
[2021-07-09] MEDS: LACTATED RINGERS 1,000 ML IV SCH (03:39)
[2021-07-09] MEDS: APIXABAN 5 MG TAB PO SCH ×2 (08:35→20:14)
[2021-07-09] MEDS: CHOLECALCIFEROL 25 MCG (1000 IU) TABLET PO SCH (08:45)
[2021-07-09] MEDS: CHLORTHALIDONE 25 MG TAB PO SCH (08:45)
[2021-07-09] MEDS: ASCORBIC ACID 500 MG TAB PO SCH (08:45)
[2021-07-09] MEDS: LABETALOL 200 MG TAB PO SCH ×3 (08:46→20:13)
[2021-07-09] MEDS: DEXAMETHASONE SOD PHOSPHATE 10 MG/ML 1 ML VIAL IV SCH (08:46)
[2021-07-09] MEDS: FAMOTIDINE 20 MG TAB PO SCH (08:46)
[2021-07-09] MEDS: LISINOPRIL-HCTZ 20-12.5 MG 1 EACH TAB PO SCH ×2 (08:47→20:14)
[2021-07-09] MEDS: ZINC SULFATE 220 MG CAP PO SCH (08:48)
[2021-07-09 09:02] LABS: C Reactive Protein 5.8 mg/dL (<1.0)
--- NOTE | 2021-07-09 11:50 | ECHOF ---
Referral Reason: MEASUREMENTS -------- HEIGHT: 162.6 cm WEIGHT: 72.6 kg BP: 135/64 RVIDd: 3.6 cm (< 3.3) IVSd: 1.4 cm (0.6 - 1.1) LVIDd: 3.5 cm (3.9 - 5.3) LVPWd: 1.2 cm (0.6 - 1.1) IVSs: 1.6 cm LVIDs: 2.2 cm LVPWs: 1.6 cm LAESV Index (A-L): 34.42 ml/m Ao Diam: 3.2 cm (2.0 - 3.7) AV Cusp: 1.8 cm (1.5 - 2.6) LA Diam: 2.5 cm (2.7 - 3.8) MV E Subhash: 0.73 m/s MV DecT: 293 ms MV A Subhash: 1.06 m/s MV E/A Ratio: 0.69 RAP: 5.00 mmHg RVSP: 43.45 mmHg FINDINGS -------- Sinus rhythm. This was a technically adequate study. The left ventricular size is normal. There is moderate concentric left ventricular hypertrophy. O verall left ventricular systolic function is normal with, an EF between 55 - 60 %. The LV end diast olic pressure is elevated 20.71. The right ventricle is mildly enlarged. LA is moderately dilated 34-39 ml/m2 The right atrium was not well visualized. Interatrial and interventricular septum intact. Aortic valve is trileaflet and is mildly thickened. There is no evidence of aortic regurgitation. There is no evidence of aortic stenosis. Moderate mitral annular calcification present. Mild mitral regurgitation is present. [id number] tricuspid regurgitation present. There is mild pulmonary hypertension. The right ventricular systolic pressure, as measured by Doppler, is 43.45mmHg. There is no pulmonic regurgitation present. The aortic root size is normal. IVC Not well visulized. There is no pericardial effusion. CONCLUSIONS -------- 1. There is moderate concentric left ventricular hypertrophy. 2. Overall left ventricular systolic function is normal with, an EF between 55 - 60 %. 3. The LV end diastolic pressure is elevated 20.71. 4. The right ventricle is mildly enlarged. 5. LA is moderately dilated 34-39 ml/m2 6. Aortic valve is trileaflet and is mildly thickened. 7. Mild mitral regurgitation is present. 8. Sfvi-ah-sczinanu tricuspid regurgitation present. 9. There is mild pulmonary hypertension. MILK DRIVER: Estrella Rees RDCS
--- NOTE | 2021-07-09 14:21 | P.PN ---
Subjective Progress Note Date: 07/09/21 Principal diagnosis: Coronavirus pneumonia. COVID-19 pneumonia This is a very pleasant 80-year-old female patient with no specific past medical history. On no home medications. On June 24 she started developing flu like symptoms with poor appetite, chills, cough, congestion. She tested positive for COVID-19 on 06/29/2021 in the [place] area. Her symptoms progressed and she was brought here to the hospital yesterday. She did have O2 saturations in the mid 80s. Chest x-ray showed evidence of COVID-19 pneumonia with bilateral peripheral pulmonary interstitial infiltrates. White count 10.8. Hemoglobin 13.2. Sodium 137. Potassium 3.2. Creatinine 1.07. LDH 1457. C- reactive protein 23.3. Pro-calcitonin 0.13. She's been initiated on Decadron 6 mg daily, Lovenox 40 mg subcu daily, vitamin supplements. She is outside the window for Remdesivir. Does not meet criteria for Baricitinib. She is seen today in consultation on the regular medical floor. She is currently sitting up in bed. Awake and alert in no acute distress. She is maintaining O2 satura tions in the 90s on liters per minute per nasal cannula. O2 saturation 92%. She's been afebrile. Hemodynamically stable. The patient is seen today 07/06/2021 in follow-up on the regular medical floor she is currently sitting up in bed. Awake and alert in no acute distress. She is still requiring 6 L high flow nasal cannula to maintain O2 saturations in the 90s. She's been afebrile. Hypertensive. D-dimer greater than 34. Sodium 140. Potassium 4.0. Creatinine 0.89. C-reactive protein 14.1. She is continued on Lovenox, Decadron, vitamin supplements. Reevaluated today on 07/07/2021, patient remains on the regular medical floor, she is on4 L nasal cannula, and her O2 saturation is 93%. Blood pressure however remains high, her blood pressures as high as 190/76. Patient is afebril e, she seems to be a bit anxious. CT of the chest showed left lower lobe pulmonary emboli and groundglass opacities to peripheral lungs compatible with COVID-19 infection. Patient has been fully anticoagulated, and I plan to transition the patient to oral anticoagulation therapy. Patient will be placed on Eliquis at 10 mg by mouth twice a day and eventually go to 5 mg twice a day. For her blood pressure, patient is receiving hydralazine, metoprolol, lisinopril, The patient is seen today 07/08/2021 in follow-up on the regular medical floor. She is sitting up in bed. Awake and alert in no acute distress. Eating a bit easier today compared to yesterday. Maintaining O2 saturations in the 90s on 4 L/m per nasal cannula. Afebrile. D-dimer 13.8. Sodium 138. Potassium 3.9. Creatinine 0.93. LDH 1212. C-reactive protein 9.0. She is anticoagulated with Eliquis. Remains on Decadron and vitamin supplements. Progress note dated 07/09/2021. 80-year-old female admitted with a diagnosis of coronavirus pneumonia, and was also found to have a pulmonary embolism. Currently, the patient's doing well. She denies any significant shortness of breath, cough, or wheezing. Her breathi ng is much improved and she is hoping to be discharged soon. She denies any chest pain or chest pressure. She denies any fever or chills. She's currently on 1-2 L by nasal cannula. She was placed on Eliquis as an anticoagulant. Labs reviewed, with a d-dimer of 21.45, and LDH is 1025, and a C-reactive protein of 5.8. No recent x-rays to review on this patient. Objective - Vital Signs Vital signs: Vital Signs Temp 98.1 F 07/09/21 10:00 Pulse 62 07/09/21 10:00 Resp 14 07/09/21 10:00 BP 134/70 07/09/21 10:00 Pulse Ox 93 L 07/09/21 10:00 Intake & Output 07/08/21 07/09/21 07/09/21 18:59 06:59 18:59 Other: Voiding Method Toilet Toilet Toilet # Voids 3 4 - Exam No acute distress, oriented 3. Currently on 1-2 L nasal cannula. No obvious respiratory distress or use of accessory muscles. HEENT examination is grossly unremarkable. Neck supple. Full range of motion. No adenopathy thyromegaly or neck vein distention. Cardiovascular examination reveals regular rhythm rate. S1-S2 normal. No S3 or S4. No discernible murmur noted. Heart rate 62 bpm. Lungs reveal mostly clear breath sounds. Mild scattered rhonchi. No wheezes or crackles. 2 L saturations are 93-94%. Abdomen soft bowel sounds are heard. No masses or tenderness. Extremities are intact. No cyanosis clubbing or edema. Skin is without rash or lesion. Neurologic examination is brief but nonfocal. - Labs CBC & Chem 7: 07/04/21 20:43 07/08/21 04:33 Labs: Abnormal Lab Results - Last 24 Hours (Table) 07/09/21 07/09/21 Range/Units 06:52 06:52 D-Dimer 21.45 H (<0.60) mg/L FEU Lactate Dehydrogenase 1025 H (313-618) U/L C-Reactive Protein 5.8 H (<1.0) mg/dL Microbiology - Last 24 Hours (Table) 07/04/21 20:40 Blood Culture - Preliminary Blood No Growth after 96 hours Assessment and Plan Assessment: Acute hypoxemic respiratory failure secondary to coronavirus associated pneumonia. Elevated inflammatory marker secondary to above. Acute renal failure secondary to dehydration. Small, left lower lobe pulmonary emboli, as a complication of coronavirus infection. Plan: Plan dated 07/09/2021. The patient's doing well. She remains on a factor X a inhibitor, for her pulmonary embolism, left lower lobe. Clinically, she's improved. Her breathing is much better. She down to 2 L nasal cannula. Saturations are 93-94%. The patient could be considered for possible discharge. We'll leave that up to the primary. The patient will follow up with us in the office. Interestingly, I used to see the patient's , who recently passed. Time with Patient: Less than 30
--- NOTE | 2021-07-09 14:32 | PN ---
PROGRESS NOTE DATE OF SERVICE: 07/09/2021 REASON FOR FOLLOWUP: Covid 19 pneumonia. INTERVAL HISTORY: The patient is afebrile. The patient is breathing comfortably. Patient denies having any chest pain. Minimal cough. No vomiting. No abdominal pain. No diarrhea. PHYSICAL EXAMINATION: Blood pressure 134/70 with a pulse of 72, temperature 98.1. She is 93% on 2 L nasal cannula. General description is an elderly female up in bed in no distress. Respiratory system: Unlabored breathing, decreased intensity of breath sounds in the base, with no wheeze. Heart S1, S2. Regular rate and rhythm. Abdomen soft, no tenderness. LAB: D-dimer is 21.45 and LDH 1025. CRP is 5.8. DIAGNOSTIC IMPRESSION AND PLAN: Patient with acute COVID-19 pneumonia with a complicating factor of pulmonary embolism. The patient is currently being treated with Eliquis, Dexamethasone, zinc and ascorbic acid, did have minimal clinical improvement, to continue current treatment protocol and monitor clinical course closely. MMODL / IJN: [id number] /
--- NOTE | 2021-07-09 15:52 | P.PN ---
Progress Note - Text Progress Note Date: 07/09/21 Chief Complaint: Shortness of breath History of presenting complaint: This is a pleasant 80-year-old patient with no family doctor. I was informed this afternoon to resume the care of this patient. Patient normally in good health does not take any medications at home. Patient was recently at a family event and on June 22 started having some systemic symptoms. She had a slight cough. Slight chills. Decreased appetite. Some weakness. Symptoms started to progress. Patient started becoming short of breath for last 3 days. June 29 she tested positive for COVID-19. Per EMS his pulse ox dropped down to 72%. She is currently on 6 L. Patient denies any fevers. 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 She was brought in on 3 L of oxygen with a pulse ox pain 90-95% by EMS. Patient did not take the vaccine for COVID-19 Admitted with acute COVID-19 pneumonitis, acute hypoxic respiratory failure. Started IV dexamethasone, therapeutic dose of Lovenox. Acute left lower lobe pulmonary embolism. Being changed over to eliquis July 06: Patient is breathing is actually better this morning. FiO2 decreased to 4 L. Computed tomography scan of the chest ordered showed left lower lobe PE. Patient is on therapeutic dose of Lovenox. Discussed with Dr. Barraza from [place]. Given the improving oxygenation patient not a candidate for Baricitinib. Also spoke to patient of Dr. Bella over the phone and given an update. Questions answered. July 07: On 4 L of nasal cannula. Oral intake fair. Had bowel movement. No fever. Slight cough. Breathing stable. Being changed over to eliquis. Discussed with patient. Has been up in a chair. Blood pressure been running high. I added beta ileana yesterday evening. Dose was further increased this morning as a morning blood pressure was 190/76. Chlorthalidone also added. July 08: On 4 L of nasal cannula. Oral intake fair. Breathing slightly better. Blood pressure still running high. Will DC Lopressor, start labetalol 400 mg twice a day. July 09: Breathing better. Pulse ox 90-94% on 2-3 L. Oral intake fair. Blood pressure doing better. Up to the bathroom. Spoke to the nurse to check pulse ox with activity in the morning and plan for discharge home with oxygen tomorrow. Review of systems: Was done for constitutional, cardiovascular, GI, pulmonary. relevant finding as above Active Medications Acetaminophen (Acetaminophen Tab 325 Mg Tab) 650 mg PO Q6HR PRN PRN Reason: Mild Pain or Fever > 100.5 Apixaban (Apixaban 5 Mg Tab) 5 mg PO BID [facility]; Protocol Apixaban (Apixaban 5 Mg Tab) 10 mg PO BID [facility]; Protocol Stop: 07/14/21 09:01 Last Admin: 07/09/21 08:35 Dose: 10 mg Documented by: Ascorbic Acid (Ascorbic Acid 500 Mg Tab) 1,000 mg PO DAILY [facility] Last Admin: 07/09/21 08:45 Dose: 1,000 mg Documented by: Chlorthalidone (Chlorthalidone 25 Mg Tab) 25 mg PO DAILY [facility] Last Admin: 07/09/21 08:45 Dose: 25 mg Documented by: Cholecalciferol (Cholecalciferol 25 Mcg (1000 Iu) Tablet) 50 mcg PO DAILY [facility] Last Admin: 07/09/21 08:45 Dose: 50 mcg Documented by: Dexamethasone Sodium Phosphate (Dexamethasone Sod Phosphate 10 Mg/Ml 1 Ml Vial) 6 mg IV DAILY [facility] Last Admin: 07/09/21 08:46 Dose: 6 mg Documented by: Famotidine (Famotidine 20 Mg Tab) 20 mg PO DAILY [facility] Last Admin: 07/09/21 08:46 Dose: 20 mg Documented by: Lisinopril/HCTZ (Lisinopril-Hctz 20-12.5 Mg 1 Each Tab) 1 each PO BID [facility] Last Admin: 07/09/21 08:47 Dose: 1 each Documented by: Hydralazine HCl (Hydralazine Hcl 25 Mg Tab) 25 mg PO TID PRN PRN Reason: Blood Pressure - High Last Admin: 07/08/21 18:20 Dose: 25 mg Documented by: Lactated Ringer's (Lactated Ringers) 1,000 mls @ 10 mls/hr IV .Q24H [facility] Last Admin: 07/09/21 03:39 Dose: Not Given Documented by: Labetalol HCl (Labetalol 200 Mg Tab) 400 mg PO BID [facility] Last Admin: 07/09/21 10:12 Dose: Not Given Documented by: Naloxone HCl (Naloxone 0.4 Mg/Ml 1 Ml Vial) 0.2 mg IV Q2M PRN PRN Reason: Opioid Reversal Zinc Sulfate (Zinc Sulfate 220 Mg Cap) 220 mg PO DAILY [facility] Last Admin: 07/09/21 08:48 Dose: 220 mg Documented by: Past medical history to include: Osteoarthritis. Social history: . No history of smoking or alcohol. Family history: Reviewed, noncontributory to presentation Physical examination: VITAL SIGNS: 98.1, 69, 16, 1 35 x 64, 90% on 2 L GENERAL: Sitting on the side of the bed, at in distress LUNGS: Respiratory rate increased, few basal crackles Cardiovascular: First seconds are normal, no edema Abdomen: Soft, nontender, liver spleen not palpable, no mass palpable. PSYCH: Alert and oriented x3; mood and affect normal. NEUROLOGICAL: Moving all 4 limbs. Cranial nerves grossly intact. Rest of the exam as per pulmonary and nursing INVESTIGATIONS, reviewed in the clinical context: July 09: D-dimer 21.45 CRP 5.8 2-D echocardiogram moderate concentric LVH. Moderate mitral annular calcification. July 08: D-dimer 13.8 potassium 3.9 creatinine 0.93 CRP 9 July 06: D-dimer greater than 34 potassium 4 creatinine 0.89 CRP 14.1 Chest CTA [July 06: Left lower lobe pulmonary emboli. Infiltrates Doppler ultrasound: Lower extremity/negative for DVT White count 10.8 hemoglobin 13.2 platelets 211 d-dimer 34.1 potassium 3.9 BUN 25 creatinine 1.07 CRP 23.3 pro-calcitonin 0.13 EKG tracing personally reviewed by me-normal sinus rhythm, 85/m Chest x-ray film personally reviewed by me-bilateral infiltrates Assessment plan: -Acute COVID-19 bilateral pneumonitis, with symptoms starting on June 22. Patient tested positive on June 29.: IV dexamethasone. Vitamin C, vitamin D, therapeutic dose Lovenox.-Changed over to eliquis Follow with pulmonary and ID -Acute left lower lobe pulmonary emboli, from COVID-19 Subcu Lovenox, changed to eliquis -Acute hypoxic respiratory failure from COVID-19: On2 L nasal cannula. -Hypertensive heart disease On labetalol 4 mg twice a day. Chlorthalidone. -Acute kidney injury, prerenal from decreased oral intake: Improved Decrease fluids -Essential hypertension with urgency Zestoretic 20/12.5 one tablet twice a day. Chlorthalidone 25 mg daily added. labetalol 400 mg twice a day. IV dexamethasone,eliquis. Spoke to the nurse. Will check for pulse ox with activity in the morning. Hopefully discharge tomorrow.
[2021-07-10] MEDS: LACTATED RINGERS 1,000 ML IV SCH (02:38)
[2021-07-10] MEDS: DEXAMETHASONE SOD PHOSPHATE 10 MG/ML 1 ML VIAL IV SCH (08:21)
[2021-07-10] MEDS: CHLORTHALIDONE 25 MG TAB PO SCH (08:22)
[2021-07-10] MEDS: APIXABAN 5 MG TAB PO SCH (08:22)
[2021-07-10] MEDS: CHOLECALCIFEROL 25 MCG (1000 IU) TABLET PO SCH (08:22)
[2021-07-10] MEDS: ASCORBIC ACID 500 MG TAB PO SCH (08:22)
[2021-07-10] MEDS: FAMOTIDINE 20 MG TAB PO SCH (08:22)
[2021-07-10] MEDS: LISINOPRIL-HCTZ 20-12.5 MG 1 EACH TAB PO SCH (08:23)
[2021-07-10] MEDS: LABETALOL 200 MG TAB PO SCH (08:23)
[2021-07-10] MEDS: ZINC SULFATE 220 MG CAP PO SCH (08:23)
--- NOTE | 2021-07-10 11:06 | P.PN ---
Subjective Progress Note Date: 07/10/21 Principal diagnosis: Coronavirus pneumonia. COVID-19 pneumonia This is a very pleasant 80-year-old female patient with no specific past medical history. On no home medications. On June 24 she started developing flu like symptoms with poor appetite, chills, cough, congestion. She tested positive for COVID-19 on 06/29/2021 in the [place] area. Her symptoms progressed and she was brought here to the hospital yesterday. She did have O2 saturations in the mid 80s. Chest x-ray showed evidence of COVID-19 pneumonia with bilateral peripheral pulmonary interstitial infiltrates. White count 10.8. Hemoglobin 13.2. Sodium 137. Potassium 3.2. Creatinine 1.07. LDH 1457. C- reactive protein 23.3. Pro-calcitonin 0.13. She's been initiated on Decadron 6 mg daily, Lovenox 40 mg subcu daily, vitamin supplements. She is outside the window for Remdesivir. Does not meet criteria for Baricitinib. She is seen today in consultation on the regular medical floor. She is currently sitting up in bed. Awake and alert in no acute distress. She is maintaining O2 satura tions in the 90s on liters per minute per nasal cannula. O2 saturation 92%. She's been afebrile. Hemodynamically stable. The patient is seen today 07/06/2021 in follow-up on the regular medical floor she is currently sitting up in bed. Awake and alert in no acute distress. She is still requiring 6 L high flow nasal cannula to maintain O2 saturations in the 90s. She's been afebrile. Hypertensive. D-dimer greater than 34. Sodium 140. Potassium 4.0. Creatinine 0.89. C-reactive protein 14.1. She is continued on Lovenox, Decadron, vitamin supplements. Reevaluated today on 07/07/2021, patient remains on the regular medical floor, she is on4 L nasal cannula, and her O2 saturation is 93%. Blood pressure however remains high, her blood pressures as high as 190/76. Patient is afebril e, she seems to be a bit anxious. CT of the chest showed left lower lobe pulmonary emboli and groundglass opacities to peripheral lungs compatible with COVID-19 infection. Patient has been fully anticoagulated, and I plan to transition the patient to oral anticoagulation therapy. Patient will be placed on Eliquis at 10 mg by mouth twice a day and eventually go to 5 mg twice a day. For her blood pressure, patient is receiving hydralazine, metoprolol, lisinopril, The patient is seen today 07/08/2021 in follow-up on the regular medical floor. She is sitting up in bed. Awake and alert in no acute distress. Eating a bit easier today compared to yesterday. Maintaining O2 saturations in the 90s on 4 L/m per nasal cannula. Afebrile. D-dimer 13.8. Sodium 138. Potassium 3.9. Creatinine 0.93. LDH 1212. C-reactive protein 9.0. She is anticoagulated with Eliquis. Remains on Decadron and vitamin supplements. Progress note dated 07/09/2021. 80-year-old female admitted with a diagnosis of coronavirus pneumonia, and was also found to have a pulmonary embolism. Currently, the patient's doing well. She denies any significant shortness of breath, cough, or wheezing. Her breathi ng is much improved and she is hoping to be discharged soon. She denies any chest pain or chest pressure. She denies any fever or chills. She's currently on 1-2 L by nasal cannula. She was placed on Eliquis as an anticoagulant. Labs reviewed, with a d-dimer of 21.45, and LDH is 1025, and a C-reactive protein of 5.8. No recent x-rays to review on this patient. Progress note dated 07/10/2021. 80-year-old female seen with a diagnosis of coronavirus pneumonia. She was seen in room 475. The patient is doing well. On this admission, she was found to have a small pulmonary embolism. She was placed on a factor X a inhibitor. Currently, from the pulmonary standpoint she is doing well. She will see me in the office in follow-up. Currently, she is on 2 L nasal cannula. Saturations are 92%. No new laboratory data from today. Objective - Vital Signs Vital signs: Vital Signs Temp 98.2 F 07/10/21 10:00 Pulse 61 07/10/21 10:00 Resp 20 07/10/21 10:00 BP 121/76 07/10/21 10:00 Pulse Ox 92 L 07/10/21 10:00 Intake & Output 07/09/21 07/10/21 07/10/21 18:59 06:59 18:59 Other: Voiding Method Toilet # Voids 1 2 - Exam No acute distress, oriented 3. Currently on 1-2 L nasal cannula. No obvious respiratory distress or use of accessory muscles. HEENT examination is grossly unremarkable. Neck supple. Full range of motion. No adenopathy thyromegaly or neck vein distention. Cardiovascular examination reveals regular rhythm rate. S1-S2 normal. No S3 or S4. No discernible murmur noted. Heart rate 61 bpm. Lungs reveal mostly clear breath sounds. Mild scattered rhonchi. No wheezes or crackles. 2 L saturations are 92-94 %. Abdomen soft bowel sounds are heard. No masses or tenderness. Extremities are intact. No cyanosis clubbing or edema. Skin is without rash or lesion. Neurologic examination is brief but nonfocal. - Labs CBC & Chem 7: 07/04/21 20:43 07/08/21 04:33 Labs: Microbiology - Last 24 Hours (Table) 07/04/21 20:40 Blood Culture - Preliminary Blood No Growth after 120 hours Assessment and Plan Assessment: Acute hypoxemic respiratory failure secondary to coronavirus associated pneumonia. Elevated inflammatory marker secondary to above. Acute renal failure secondary to dehydration. Small, left lower lobe pulmonary emboli, as a complication of coronavirus infection. Plan: Plan dated 07/09/2021. The patient's doing well. She remains on a factor X a inhibitor, for her pulmonary embolism, left lower lobe. Clinically, she's improved. Her breathing is much better. She down to 2 L nasal cannula. Saturations are 93-94%. The patient could be considered for possible discharge. We'll leave that up to the primary. The patient will follow up with us in the office. Interestingly, I used to see the patient's , who recently passed. Plan dated 07/10/2021. The patient's doing well. The patient is on a factor X a inhibitor for pulmonary embolus some, left lower lobe. Clinically she is doing much better. She's been weaned down to 2 L nasal cannula. Saturations for the most part of between 92% and 94%. The patient is being considered for possible discharge. The patient will follow with me in the office. No additional recommendations are made. Time with Patient: Less than 30
[2021-07-10 15:14] VITALS: BP 106/58; PULSE 65; RESP 22; TEMP 97.9
--- NOTE | 2021-07-10 15:46 | P.DS ---
Providers Date of admission: 07/04/21 20:57 Expected date of discharge: 07/10/21 Attending physician: Ricardo Dow Consults: 07/04/21 20:57 Consult Physician Routine Consulting Provider: Miranda Ambrocio Consult Reason/Comments: covid Do you want consulting provider notified?: Yes 07/05/21 21:20 Consult Physician Routine Consulting Provider: Omayra Maria Consult Reason/Comments: covid-19 Do you want consulting provider notified?: Yes Primary care physician: Stated None Hospital Course: Chief Complaint: Shortness of breath History of presenting complaint: This is a pleasant 80-year-old patient with no family doctor. I was informed this afternoon to resume the care of this patient. Patient normally in good health does not take any medications at home. Patient was recently at a family event and on June 22 started having some systemic symptoms. She had a slight cough. Slight chills. Decreased appetite. Some weakness. Symptoms started to progress. Patient started becoming short of breath for last 3 days. June 29 she tested positive for COVID-19. Per EMS his pulse ox dropped down to 72%. She is currently on 6 L. Patient denies any fevers. 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 She was brought in on 3 L of oxygen with a pulse ox pain 90-95% by EMS. Patient did not take the vaccine for COVID-19 Admitted with acute COVID-19 pneumonitis, acute hypoxic respiratory failure. Started IV dexamethasone, therapeutic dose of Lovenox. Acute left lower lobe pulmonary embolism. changed over to eliquis. Patient blood pressure remained high. Medications were adjusted accordingly. 2-D echocardiogram did show LVH showing evidence of chronic uncontrolled blood pressure. Today: Patient doing better. On 2 L of nasal cannula. Blood pressure better controlled. Cleared by pulmonary. Care was discussed with the patient. Question also. She'll follow up with Dr. Guevara and Dr. Aguirre as outpatient. Also spoke to the daughter given up-to-date. Questions answered. Discussion and discharge planning more than 35 minutes Consultation: Dr. Aguirre partners from pulmonary Dr. Maria from ID Past medical history to include: Osteoarthritis. Social history: . No history of smoking or alcohol. Family history: Reviewed, noncontributory to presentation Physical examination: VITAL SIGNS: 87.9, 65, 22, 106/58, 96% on 2 L GENERAL: Sitting on the side of the bed, comfortable LUNGS: Respiratory rate normal PSYCH: Alert and oriented x3; mood and affect normal. NEUROLOGICAL: Moving all 4 limbs. Cranial nerves grossly intact. INVESTIGATIONS, reviewed in the clinical context: July 09: D-dimer 21.45 CRP 5.8 2-D echocardiogram moderate concentric LVH. Moderate mitral annular calcif ication. July 08: D-dimer 13.8 potassium 3.9 creatinine 0.93 CRP 9 July 06: D-dimer greater than 34 potassium 4 creatinine 0.89 CRP 14.1 Chest CTA [July 06: Left lower lobe pulmonary emboli. Infiltrates Doppler ultrasound: Lower extremity/negative for DVT White count 10.8 hemoglobin 13.2 platelets 211 d-dimer 34.1 potassium 3.9 BUN 25 creatinine 1.07 CRP 23.3 pro-calcitonin 0.13 EKG tracing personally reviewed by me-normal sinus rhythm, 85/m Chest x-ray film personally reviewed by me-bilateral infiltrates Assessment plan: -Acute COVID-19 bilateral pneumonitis, with symptoms starting on June 22. Patient tested positive on June 29.: Improved IV dexamethasone. Vitamin C, vitamin D, therapeutic dose Lovenox.-Changed over to eliquis DC home on Decadron per pulmonary -Acute left lower lobe pulmonary emboli, from COVID-19 Subcu Lovenox, DC home on eliquis -Acute hypoxic respiratory failure from COVID-19: On2 L nasal cannula. -Hypertensive heart disease On labetalol 400 mg twice a day. Sayreji Fraser -Acute kidney injury, prerenal from decreased oral intake: Improved Decrease fluids -Essential hypertension with urgency Zestoretic 20/12.5 one tablet twice a day. labetalol 400 mg twice a day. Disposition: Home Patient Condition at Discharge: Fair Plan - Discharge Summary Discharge Rx Participant: No New Discharge Prescriptions: New Apixaban [Eliquis Starter Pack (for VTE)] 5 - 10 mg PO DIRECTED 30 Days #1 each Zinc Sulfate [Orazinc] 220 mg PO DAILY #30 cap Cholecalciferol [Vitamin D3 (25 Mcg = 1000 Iu)] 50 mcg PO DAILY #60 tablet Dexamethasone [Decadron] 6 mg PO DAILY 7 Days #7 tablet Famotidine [Pepcid] 20 mg PO DAILY #30 tab Labetalol [Trandate] 400 mg PO BID #60 tab Ascorbic Acid [Vitamin C] 1,000 mg PO DAILY #60 tab Lisinopril-Hctz 20-12.5 mg [Zestoretic 20-12.5] 1 each PO BID #30 tab Discharge Medication List Apixaban [Eliquis Starter Pack (for VTE)] 5 - 10 mg PO DIRECTED 30 Days #1 each 07/07/21 [Rx] Dexamethasone [Decadron] 6 mg PO DAILY 7 Days #7 tablet 07/07/21 [Rx] Ascorbic Acid [Vitamin C] 1,000 mg PO DAILY #60 tab 07/10/21 [Rx] Cholecalciferol [Vitamin D3 (25 Mcg = 1000 Iu)] 50 mcg PO DAILY #60 tablet 07/10/21 [Rx] Famotidine [Pepcid] 20 mg PO DAILY #30 tab 07/10/21 [Rx] Labetalol [Trandate] 400 mg PO BID #60 tab 07/10/21 [Rx] Lisinopril-Hctz 20-12.5 mg [Zestoretic 20-12.5] 1 each PO BID #30 tab 07/10/21 [Rx] Zinc Sulfate [Orazinc] 220 mg PO DAILY #30 cap 07/10/21 [Rx] Follow up Appointment(s)/Referral(s): Elpidio Guevara DO [STAFF PHYSICIAN] - 3 Days Vinod Aguirre DO [Doctor of Osteopathic Medicine] - 08/13/21 1:00 pm [facility], [NON-STAFF] - As Needed None,Stated [Primary Care Provider] - 1-2 days Andrew Gu [NON-STAFF] - As Needed (oxygen ) Patient Instructions/Handouts: Coronavirus Disease 2019 (COVID-19), Pulmonary Embolism (DC), How to Use an Incentive Spirometer (DC), Hypertension (DC) Activity/Diet/Wound Care/Special Instructions: Home fio2 as per pulmonary covid -19 dc orders Oxygen tanks last about 4 hours, two are provided. Other tanks will be delivered to your house.
--- NOTE | 2021-07-10 20:52 | P.PN ---
Progress Note - Text Progress Note Date: 07/10/21 REASON FOR FOLLOWUP: Covid 19 pneumonia. INTERVAL HISTORY: The patient remains to be afebrile. The patient is breathing comfortably. The patient denies having any chest pain. Minimal cough. No vomiting. No abdominal pain. No diarrhea. PHYSICAL EXAMINATION: Blood pressure 130/75 with a pulse of 70, temperature 98.1. She is 93% on 2 L nasal cannula. General description is an elderly female up in bed in no distress. Respiratory system: Unlabored breathing, decreased intensity of breath sounds in the base, with no wheeze. Heart S1, S2. Regular rate and rhythm. Abdomen soft, no tenderness. LAB: Reviewed DIAGNOSTIC IMPRESSION AND PLAN: Patient with acute COVID-19 pneumonia with a complicating factor of pulmonary embolism. The patient seemed to have clinical improvement with Eliquis, Dexamethasone, zinc and ascorbic acid, to finish therapy with the short course of tapering steroids and close outpatient follow-up
--- NOTE | 2021-07-12 10:45 | CDI ---
Documentation Clarification Form Date: 07/12/21 From: Concepcion Ponce Admit Date: 07/04/2021 08:57:00 PM Patient Name: Eulalia aMy Visit Number: [id number] Discharge Date: 07/10/2021 04:57:00 PM ATTENTION: The Clinical Documentation Specialists (CDI) and [facility] Coding Staff appreciate your assistance in clarifying documentation. Please respond to the clarification below the line at the bottom and electronically sign. The CDI & [facility] Coding staff will review the response and follow-up if needed. Please note: Queries are made part of the Legal Health Record. If you have any questions, please contact the author of this message via ITS. Dr. Ricardo Dow, Acute kidney injury, prerenal from decreased oral intake is documented in H&P and DS and several progress notes, which may lack sufficient clinical evidence/support in the medical record. Additional clarification is requested. History/Risk Factors: COVID 19 with bilateral pneumonitis, pulmonary embolus and acute hypoxic respiratory failure. Clinical Indicators: CR: 1.07, 0.89, 0.93 KDIGO defines GILL when baseline creatinine is unknown "The lowest SCr obtained during a hospitalization is usually equal to or greater than the baseline. Increase in creatinine >- 0.3 mg/dl within 48 hrs. No urine output documented. Treatment: IV fluids Please clarify if acute kidney injury is a valid diagnosis? [ ] Yes, acute kidney injury is present as evidence by (additional clinical support): [ ] No, acute kidney injury is ruled out [ ] Other (please specify diagnosis) [ ] Unable to determine acute kidney injury, is ruled out. [Patient had dehydration] MTDD
[2021-07-14] MEDS ORDERED: APIXABAN 5 MG TAB PO SCH (21:00)
== END 2021-07-10 16:57 | disposition home health service (06) | DRG 177 ==
LOC: EC 19:31 → 4SSUR 20:57
PROVIDERS: ADMIT Hospitalist; ATTEND Hospitalist
DX: U07.1 COVID-19 (principal); J12.82 Pneumonia due to coronavirus disease 2019; I26.99 Other pulmonary embolism without acute cor pulmonale; J96.01 Acute respiratory failure with hypoxia; I11.9 Hypertensive heart disease without heart failure; J44.9 Chronic obstructive pulmonary disease, unspecified; E86.0 Dehydration; I16.0 Hypertensive urgency; M19.90 Unspecified osteoarthritis, unspecified site; Z96.653 Presence of artificial knee joint, bilateral; Z90.710 Acquired absence of both cervix and uterus; Z87.42 Personal history of other diseases of the female genital tract; Z98.42 Cataract extraction status, left eye; Z98.41 Cataract extraction status, right eye; Z98.890 Other specified postprocedural states; Z91.018 Allergy to other foods
CPT/HCPCS: 36415; 71045; 71275; 80048; 80053; 82728; 83605; 83615; 83735; 84145; 85025; 85379; 85610; 85730; 86140; 87040; 93005; 93306; 93970; 94760; 99285

== ENCOUNTER → 2021-08-13 | Outpatient (CLI) | payer MEDICARE | END | disposition home or self-care (01) | LOC: RADCTMAIN 14:19 | PROVIDERS: ATTEND Internal Medicine Critical Care Medicine | DX: I26.99 Other pulmonary embolism without acute cor pulmonale (principal) | CPT/HCPCS: 82565; 84520 ==